=== PATIENT | male | born 1960 | race Caucasian/White ===

== ENCOUNTER 2017-03-22 07:50 | Emergency (ER) | payer MEDICARE ==
[2017-03-22] MEDS ORDERED: Sodium Chloride 0.9% 1000 ML 1,000 ML ONE (07:55)
[2017-03-22] MEDS ORDERED: Sodium Chloride 0.9% 1000 ML 1,000 ML IV STA (07:55)
--- NOTE | 2017-03-22 08:00 | ERPHSYRPT ---
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 Hx given by respiratory therapy who were with pt at the time. Pt suddenly passed out and "stopped breathing". Therapists began bag mask ventilations and brought pt to ER. Pt was unresponsive briefly but had a strong pulse. Pt then became responsive and said he had passed out. Pt c/o only of pain on sternum where a sternal rub had been performed. PMH of MR and anxiety. Pt had started a new med last night. Witnessed: other Prior Episodes: single episode today Timing/Duration: today Precipitating Factors: unknown Context: sitting Loss of Consciousness: prolonged (minutes) Charcter of event(s): became unresponsive Allergies/Adverse Reactions: No Known Drug Allergies Allergy (Verified 03/22/17 07:54) Home Medications: Cetirizine HCl 10 mg PO DAILY 09/29/13 [History] Fluoxetine HCl 10 mg [Prozac 10 mg] 40 mg PO DAILY 09/29/13 [History] Chlorhexidine Gluconate [HIBICLENS 4% Scrub] 1 bottle PO BID 08/10/14 [ History] Risperidone [Risperidone] 1 mg PO HS 03/22/17 [History] Hx Influenza Vaccination/Date Given: Yes - Past Medical History Pertinent Past Medical History: Yes Neurological History: TIA ENT History: Other Cardiac History: No Pertinent History Respiratory History: No Pertinent History Endocrine Medical History: No Pertinent History Musculoskeletal History: No Pertinent History GI Medical History: No Pertinent History History: No Pertinent History Psycho-Social History: Anxiety, Other Male Reproductive Disorders: No Pertinent History Other Medical History: Mental Retardation from . - Past Surgical History Past Surgical History: Yes Neuro Surgical History: No Pertinent History Cardiac: No Pertinent History Respiratory: No Pertinent History Gastrointestinal: Appendectomy Genitourinary: No Pertinent History Musculoskeletal: No Pertinent History Male Surgical History: No Pertinent History - Social History Smoking Status: Never smoker Exposure to second hand smoke: No Drug Use: none - Review of Systems Constitutional: No Fever, No Chills Eyes: No Symptoms Ears, Nose, & Throat: No Symptoms Respiratory: Dyspnea Cardiac: No Chest Pain, No Edema, No Syncope Abdominal/Gastrointestinal: No Abdominal Pain, No Nausea, No Vomiting, No Diarrhea Genitourinary Symptoms: No Dysuria Musculoskeletal: No Back Pain, No Neck Pain Skin: No Rash Neurological: No Dizziness, No Focal Weakness, No Sensory Changes Psychological: No Symptoms Endocrine: No Symptoms Hematologic/Lymphatic: No Symptoms Immunological/Allergic: No Symptoms All Other Systems: Reviewed and Negative Physical Exam - Nursing Vital Signs Nursing Vital Signs: Initial Vital Signs Temperature 98.8 F 03/22/17 07:57 Pulse Rate 70 03/22/17 07:57 Respiratory Rate 18 03/22/17 07:57 Blood Pressure 118/78 03/22/17 07:57 O2 Sat by Pulse Oximetry 98 03/22/17 07:57 Pain Scale Pain Intensity 0 - [place] Coma Scale Best Eye Response ([place]): (1) no response Best Verbal Response ([place]): (1) no verbal response Best Motor Response ([place]): (1) no motor response [place] Total: 3 - Physical Exam General Appearance: other (Upon entry into the ER the patient was comatose. He was undergoing bag and mask ventilation. He had strong radial pulses. Within 1 minute of being in the ER, the patient regained consciousness. 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 Skin Exam: normal color, warm, dry, No rash SpO2 Interpretation: O2 applied - Course EKG Interpreted by Me: RATE, Sinus Rhythm, NORMAL AXIS, NORMAL INTERVALS, NORMAL QRS, NORMAL ST-T - CT Exams Head CT Interpretation: Negative, No/Intracranial Hemorrhag (per Dr Ch) Ordered Tests: Active Orders 24 hr Category Date Time Status Accucheck STAT Care 03/22/17 07:55 Active User Experience Lead STAT Care 03/22/17 07:55 Active EKG-ER Only STAT Care 03/22/17 07:55 Active IV Insertion STAT Care 03/22/17 07:55 Active Pulse Oximetry (ED) STAT Care 03/22/17 07:55 Active HEAD WITHOUT CONTRAST [CT] Stat Exams 03/22/17 07:55 Completed CBC W DIFF Stat Lab 03/22/17 07:50 Completed CMP Stat Lab 03/22/17 07:50 Completed Manual Differential NC Stat Lab 03/22/17 07:50 Completed TROPONIN Stat Lab 03/22/17 07:50 Completed Medication Summary Discontinued Medications Generic Name Dose Route Start Last Admin Trade Name Antonella PRN Reason Stop Dose Admin Sodium Chloride Confirm 03/22/17 07:55 Sodium Chloride 0.9% 1000 Ml Administered 03/22/17 07:56 Dose 1,000 mls @ ud .ROUTE .STK-MED ONE Sodium Chloride 1,000 mls @ 999 mls/hr 03/22/17 07:55 03/22/17 08:04 Sodium Chloride 0.9% 1000 Ml IV 03/22/17 08:55 999 mls/hr .Q1H1M STA Administration Lab/Rad Data: Laboratory Result Diagrams 03/22/17 07:50 03/22/17 07:50 Laboratory Results 03/22/17 03/22/17 03/22/17 Range/Units 07:50 07:50 07:50 WBC 6.6 (4.0-10.5) K/mm3 RBC 4.60 (4.1-5.6) M/mm3 Hgb 14.2 (12.5-18.0) gm/dl Hct 42.5 (42-50) % MCV 92.4 (78-100) fl MCH 30.9 (26-32) pg MCHC 33.4 (32-36) g/dl RDW 12.4 (11.5-14.0) % Plt Count 174 (150-450) K/mm3 MPV 9.4 (6-9.5) fl Sodium 142 (136-145) mEq/L Potassium 3.7 (3.5-5.1) mEq/L Chloride 107 (98-107) mEq/L Carbon Dioxide 25.5 (21-32) mEq/L Anion Gap 13.1 (5-15) MEQ/L BUN 9 (9-20) mg/dL Creatinine 0.59 (0.55-1.30) mg/dl Estimated GFR > 60 ML/MIN Glucose 105 (70-110) MG/DL Calcium 8.6 (8.5-10.1) mg/dL Total Bilirubin 0.40 (0.2-1.0) mg/dL AST 24 (15-37) U/L ALT 26 (12-78) U/L Alkaline Phosphatase 90 (46-116) U/L Troponin I < 0.017 (0.000-0.056) ng/ml Serum Total Protein 6.7 (6.4-8.2) gm/dL Albumin 3.5 (3.4-5.0) g/dL - Progress Progress: improved Progress Note: 03/22/17 09:11 The patient had been nothing by mouth all night prior to the cardiac procedure. The patient received 1 L of normal saline by IV bolus and is now back to his baseline being quite talkative and happy. Counseled pt/family regarding: lab results, diagnosis, rad results - Departure Time of Disposition: 09:11 Departure Disposition: Home Clinical Impression: Syncopal episodes, Dehydration Condition: Stable Critical Care Time: No Referrals: KACI ARREDONDO MD [Primary Care Provider] - Additional Instructions: You had a fainting episode. You were also mildly dehydrated. You were given IV fluids in the ER. Follow-up as needed.
[2017-03-22 08:04] LABS: Granulocyte Absolute (ANC) 5.24 (1.4-6.9); Hematocrit 42.5 % (42-50); Hemoglobin 14.2 gm/dl (12.5-18.0); Mean Cell Volume 92.4 fl (78-100); Mean Corpuscular Hemoglobin 30.9 pg (26-32); Mean Corpuscular Hgb Concent. 33.4 g/dl (32-36); Mean Platelet Volume 9.4 fl (6-9.5); Platelet Count 174 K/mm3 (150-450); Red Cell Distribution Width 12.4 % (11.5-14.0); White Blood Count 6.6 K/mm3 (4.0-10.5)
--- NOTE | 2017-03-22 08:31 | XRAY ---
Indication: Unresponsive. Multiple contiguous axial images obtained through the head without contrast. Comparison: None Normal appearing brain parenchyma, ventricles, and bony calvarium. Visualized paranasal sinuses clear. There is partial opacification of both mastoid air cells presumed inflammatory. Impression: No acute intracranial abnormalities. Partial opacification of both mastoid air cells presumed inflammatory. CT DI 68.32
[2017-03-22 08:57] LABS: ALBUMIN 3.5 g/dL (3.4-5.0); ALKALINE PHOSPHATASE 90 U/L (46-116); ANION GAP 13.1 MEQ/L (5-15); BLOOD UREA NITROGEN 9 mg/dL (9-20); CHLORIDE 107 mEq/L (98-107); Calcium 8.6 mg/dL (8.5-10.1); Carbon Dioxide 25.5 mEq/L (21-32); Creatinine 1 0.59 mg/dl (0.55-1.30); EST GLOMERULAR FILTRATION RATE > 60 ML/MIN; Glucose 105 MG/DL (70-110); Potassium 3.7 mEq/L (3.5-5.1); SGOT/AST 24 U/L (15-37); SGPT/ALT 26 U/L (12-78); SODIUM 142 mEq/L (136-145); Total Protein 6.7 gm/dL (6.4-8.2)
[2017-03-22 08:58] VITALS: BP 130/72; PULSE 70; O2SAT 99
[2017-03-22 09:20] LABS: Lymphocytes 8 % (24-44); Monocyte 1 % (0.0-12.0); Neutrophils 91 % (36.-66.); Platelet Estimate NORMAL (NORMAL); Total Cells Counted 100
== END 2017-03-22 09:23 | disposition home or self-care (01) ==
LOC: ED 07:50
DX: R55 Syncope and collapse (principal); E86.0 Dehydration; R07.89 Other chest pain; Z79.899 Other long term (current) drug therapy
CPT/HCPCS: 36000; 36415; 70450; 80053; 82962; 84484; 85025; 93005; 93041; 96360; 99285

== ENCOUNTER 2020-10-23 11:27 | Emergency (ER) | payer MEDICARE ==
--- NOTE | 2020-10-23 11:30 | ERPHSYRPT ---
- History of Present Illness Time Seen by Provider: 10/23/20 11:29 Historian: patient, other (Caregiver) Exam Limitations: clinical condition Physician History: This is a 60-year-old white male who takes Prozac and risperidone medication and a daily baby aspirin and presents with sudden onset of central, substernal, nonradiating chest pain. He is unable to describe the type of pain. It appears he does not understand the question. Patient does have a history of mental retardation since . He lives in a shelter in [facility]. He was brought into the emergency department by primary caregiver. Patient has no documented coronary artery disease but has seen Dr. Barbosa, a aquarium specialist in the past. The reason is unknown at this time. Patient has a history of TIAs. Timing/Duration: today Activities at Onset: none Location: substernal, central Chest Pain Radiation: no radiation Severity of Pain-Max: mild Severity of Pain-Current: mild Modifying Factors: Improves With: nothing Associated Symptoms: denies symptoms Prior Chest Pain/Cardiac Workup: no prior chest pain, no prior cardiac workup, non-cardiac Nitro Today/Relief: no nitro taken today Aspirin Treatment Today: 81 mg x 1, provided at home Allergies/Adverse Reactions: No Known Drug Allergies Allergy (Verified 10/23/20 11:41) Home Medications: Cetirizine HCl 10 mg PO DAILY 09/29/13 [History] Aspirin 81 gm Chew [Baby Aspirin 81 mg Chew] 81 mg PO DAILY 10/23/20 [History] Buspirone HCl [Buspar] 15 mg PO DAILY 10/23/20 [History] Fluoxetine HCl 20 mg [Prozac 20 MG] 20 mg PO DAILY 10/23/20 [History] Polyethylene Glycol 3350 17 gm [Miralax Powder 17GM PACKET] 17 gm PO DAILY 10/23/20 [History] Hx Tetanus, Diphtheria Vaccination/Date Given: No Hx Influenza Vaccination/Date Given: Yes Hx Pneumococcal Vaccination/Date Given: Yes Travel Risk - International Travel Have you traveled outside of the country in past 3 weeks: No - Coronavirus Screening Are you exhibiting any of the following symptoms?: No Close contact with a COVID-19 positive Pt in past 14-21 Days: No - Review of Systems Constitutional: No Symptoms Eyes: No Symptoms Ears, Nose, & Throat: No Symptoms Respiratory: No Symptoms Cardiac: Chest Pain Abdominal/Gastrointestinal: No Symptoms Genitourinary Symptoms: No Symptoms Musculoskeletal: No Symptoms Skin: No Symptoms Neurological: No Symptoms Psychological: No Symptoms Endocrine: No Symptoms Hematologic/Lymphatic: No Symptoms Immunological/Allergic: No Symptoms All Other Systems: Reviewed and Negative - Past Medical History Pertinent Past Medical History: Yes Neurological History: TIA ENT History: Other Cardiac History: No Pertinent History Respiratory History: No Pertinent History Endocrine Medical History: No Pertinent History Musculoskeletal History: No Pertinent History GI Medical History: No Pertinent History History: No Pertinent History Psycho-Social History: Anxiety, Other Male Reproductive Disorders: No Pertinent History Other Medical History: Mental Retardation from . - Past Surgical History Past Surgical History: Yes Neuro Surgical History: No Pertinent History Cardiac: No Pertinent History Respiratory: No Pertinent History Gastrointestinal: Appendectomy Genitourinary: No Pertinent History Musculoskeletal: No Pertinent History Male Surgical History: No Pertinent History - Social History Smoking Status: Never smoker Exposure to second hand smoke: No Drug Use: none Patient Lives Alone: No - Nursing Vital Signs Nursing Vital Signs: Initial Vital Signs Temperature 97.2 F 10/23/20 11:27 Pulse Rate 95 H 10/23/20 11:27 Respiratory Rate 16 10/23/20 11:27 Blood Pressure 138/88 10/23/20 11:27 O2 Sat by Pulse Oximetry 97 10/23/20 11:27 Pain Scale Pain Intensity 0 - Physical Exam General Appearance: no apparent distress, alert, anxiety Eye Exam: PERRL/EOMI, eyes nml inspection Ears, Nose, Throat Exam: normal ENT inspection, moist mucous membranes Neck Exam: normal inspection, non-tender, supple, full range of motion Respiratory Exam: normal breath sounds, chest tenderness, lungs clear, airway intact, No respiratory distress Cardiovascular Exam: regular rate/rhythm, normal heart sounds, normal peripheral pulses Gastrointestinal/Abdomen Exam: soft, normal bowel sounds, No tenderness Rectal Exam: not done Back Exam: normal inspection, normal range of motion, vertebral tenderness, No CVA tenderness Extremity Exam: normal inspection, normal range of motion, pelvis stable Neurologic Exam: alert, oriented x 3, cooperative, state director II-XII nml as tested, normal mood/affect, nml cerebellar function, nml station & gait, sensation nml Skin Exam: normal color, warm, dry Lymphatic Exam: No adenopathy SpO2 Interpretation: normal O2 Delivery: Room Air - Course Nursing assessment & vital signs reviewed: Yes EKG Interpreted by Me: RATE, Sinus Rhythm, NORMAL AXIS, NORMAL INTERVALS, NORMAL QRS, NORMAL ST-T, Other (There are no acute ischemic changes on today's EKG. There are no significant changes or differences when compared to EKG dated 03/22/2017) Ordered Tests: Active Orders 24 hr Category Date Time Status Pharmacy Technician Per Diem STAT Care 10/23/20 11:43 Active EKG-ER Only STAT Care 10/23/20 11:42 Active IV Insertion STAT Care 10/23/20 11:42 Active Pulse Oximetry (ED) STAT Care 10/23/20 11:42 Active CHEST 1 VIEW (PORTABLE) Stat Exams 10/23/20 11:43 Ordered CBC W DIFF Stat Lab 10/23/20 11:50 Completed CMP Stat Lab 10/23/20 11:50 Completed D-DIMER QUANTITATIVE Stat Lab 10/23/20 11:50 Completed NT PRO BNP Stat Lab 10/23/20 11:50 Completed PROTIME WITH INR Stat Lab 10/23/20 11:50 Completed TROPONIN Q3H Lab 10/23/20 11:50 Completed TROPONIN Q3H Lab 10/23/20 14:45 Ordered TROPONIN Q3H Lab 10/23/20 17:45 Ordered TROPONIN Q3H Lab 10/23/20 20:45 Ordered TROPONIN Q3H Lab 10/23/20 23:45 Ordered Medication Summary Discontinued Medications Generic Name Dose Route Start Last Admin Trade Name Freq PRN Reason Stop Dose Admin Aspirin 243 mg 10/23/20 11:42 10/23/20 11:48 Baby Aspirin 81 Mg Chew PO 10/23/20 11:43 243 mg STAT ONE Administration Lab/Rad Data: Laboratory Result Diagrams 10/23/20 11:50 10/23/20 11:50 Laboratory Results 10/23/20 10/23/20 10/23/20 Range/Units 11:50 11:50 11:50 WBC (4.0-10.5) K/mm3 RBC (4.1-5.6) M/mm3 Hgb (12.5-18.0) gm/dl Hct (42-50) % MCV (78-100) fl MCH (26-32) pg MCHC (32-36) g/dl RDW (11.5-14.0) % Plt Count (150-450) K/mm3 MPV (7.5-11.0) fl Gran % (36.0-66.0) % Eos # (Auto) (0-0.5) Absolute Lymphs (auto) (1.0-4.6) Absolute Monos (auto) (0.0-1.3) Lymphocytes % (24.0-44.0) % Monocytes % (0.0-12.0) % Eosinophils % (0.00-5.0) % Basophils % (0.0-0.4) % Absolute Granulocytes (1.4-6.9) Basophils # (0-0.4) PT 12.2 (9.4-12.5) SECONDS INR 1.03 (0.8-3.0) D-Dimer 342 (215-500) ng/mL Sodium 139 (137-145) mmol/L Potassium 4.4 (3.5-5.1) mmol/L Chloride 100 (98-107) mmol/L Carbon Dioxide 26 (22-30) mmol/L Anion Gap 16.0 H (5-15) MEQ/L BUN 12 (9-20) mg/dL Creatinine 0.62 L (0.66-1.25) mg/dL Estimated GFR > 60.0 ML/MIN Glucose 96 (74-106) mg/dL Calcium 9.0 (8.4-10.2) mg/dL Total Bilirubin 0.50 (0.2-1.3) mg/dL AST 31 (17-59) U/L ALT 14 (0-50) U/L Alkaline Phosphatase 87 (38-126) U/L Troponin I < 0.012 (0.000-0.034) ng/mL NT-Pro-B Natriuret Pep 70.4 (0-900) pg/mL Serum Total Protein 7.8 (6.3-8.2) g/dL Albumin 4.3 (3.5-5.0) g/dL 10/23/20 Range/Units 11:50 WBC 5.5 (4.0-10.5) K/mm3 RBC 4.96 (4.1-5.6) M/mm3 Hgb 15.6 (12.5-18.0) gm/dl Hct 46.5 (42-50) % MCV 93.8 (78-100) fl MCH 31.5 (26-32) pg MCHC 33.5 (32-36) g/dl RDW 12.5 (11.5-14.0) % Plt Count 253 (150-450) K/mm3 MPV 9.6 (7.5-11.0) fl Gran % 65.8 (36.0-66.0) % Eos # (Auto) 0.08 (0-0.5) Absolute Lymphs (auto) 1.22 (1.0-4.6) Absolute Monos (auto) 0.55 (0.0-1.3) Lymphocytes % 22.1 L (24.0-44.0) % Monocytes % 10.0 (0.0-12.0) % Eosinophils % 1.4 (0.00-5.0) % Basophils % 0.7 (0.0-0.4) % Absolute Granulocytes 3.63 (1.4-6.9) Basophils # 0.04 (0-0.4) PT (9.4-12.5) SECONDS INR (0.8-3.0) D-Dimer (215-500) ng/mL Sodium (137-145) mmol/L Potassium (3.5-5.1) mmol/L Chloride (98-107) mmol/L Carbon Dioxide (22-30) mmol/L Anion Gap (5-15) MEQ/L BUN (9-20) mg/dL Creatinine (0.66-1.25) mg/dL Estimated GFR ML/MIN Glucose (74-106) mg/dL Calcium (8.4-10.2) mg/dL Total Bilirubin (0.2-1.3) mg/dL AST (17-59) U/L ALT (0-50) U/L Alkaline Phosphatase (38-126) U/L Troponin I (0.000-0.034) ng/mL NT-Pro-B Natriuret Pep (0-900) pg/mL Serum Total Protein (6.3-8.2) g/dL Albumin (3.5-5.0) g/dL - Progress Progress: improved, re-examined Air Movement: good Progress Note: 10/23/20 12:30 Chest x-ray shows no acute cardiopulmonary process. Patient reexamined. Chest pain has resolved. Blood Culture(s) Obtained: No Antibiotics given: No Counseled pt/family regarding: lab results, diagnosis, need for follow-up, rad results - Departure Departure Disposition: Home Clinical Impression: Chest pain Condition: Stable Critical Care Time: No Referrals: KACI ARREDONDO MD [Primary Care Provider] - Additional Instructions: Take all your medications as prescribed. Call your primary care doctor and aquarium specialist on Sunday10/25/2020 for further evaluation and management.
[2020-10-23] MEDS ORDERED: BABY ASPIRIN 81 MG CHEW PO ONE (11:42)
[2020-10-23 11:56] LABS: Absolute Neutrophil Ct (ANC) 3.63 (1.4-6.9); BASOPHIL % 0.7 % (0.0-0.4); Basophil (Absolute #) 0.04 (0-0.4); Eosinophil % 1.4 % (0.00-5.0); Eosinophil (Absolute #) 0.08 (0-0.5); Hematocrit 46.5 % (42-50); Hemoglobin 15.6 gm/dl (12.5-18.0); Lymphocyte (Absolute #) 1.22 (1.0-4.6); Lymphocytes % 22.1 % (24.0-44.0); Mean Cell Volume 93.8 fl (78-100); Mean Corpuscular Hemoglobin 31.5 pg (26-32); Mean Corpuscular Hgb Concent. 33.5 g/dl (32-36); Mean Platelet Volume 9.6 fl (7.5-11.0); Monocyte (Absolute #) 0.55 (0.0-1.3); Neutrophil % 65.8 % (36.0-66.0); Platelet Count 253 K/mm3 (150-450); Red Blood Count 4.96 M/mm3 (4.1-5.6); Red Cell Distribution Width 12.5 % (11.5-14.0); White Blood Count 5.5 K/mm3 (4.0-10.5)
[2020-10-23 12:07] LABS: INR 1.03 (0.8-3.0); PROTIME 12.2 SECONDS (9.4-12.5)
[2020-10-23 12:16] LABS: ALBUMIN 4.3 g/dL (3.5-5.0); ALKALINE PHOSPHATASE 87 U/L (38-126); BLOOD UREA NITROGEN 12 mg/dL (9-20); CHLORIDE 100 mmol/L (98-107); Carbon Dioxide 26 mmol/L (22-30); Creatinine 1 0.62 mg/dL (0.66-1.25); EST GLOMERULAR FILTRATION RATE > 60.0 ML/MIN; Glucose 96 mg/dL (74-106); NT PRO BNP 70.4 pg/mL (0-900); Potassium 4.4 mmol/L (3.5-5.1); SGOT/AST 31 U/L (17-59); SGPT/ALT 14 U/L (0-50); SODIUM 139 mmol/L (137-145); Total Protein 7.8 g/dL (6.3-8.2)
[2020-10-23 13:24] VITALS: BP 126/78; PULSE 70; O2SAT 98
--- NOTE | 2020-10-23 19:42 | XRAY ---
Indication: Chest pain. Comparison: None Portable apical lordotic chest is underinflated and clear. Heart not enlarged. Bony thorax intact. Impression: Nonacute underinflated chest.
== END 2020-10-23 13:24 | disposition home or self-care (01) ==
LOC: ED 11:27
DX: R07.9 Chest pain, unspecified (principal); Z79.899 Other long term (current) drug therapy
CPT/HCPCS: 36000; 36415; 71045; 80053; 83880; 84484; 85025; 85379; 85610; 93005; 93041; 94760; 99284; A9270-GY

== ENCOUNTER 2020-12-20 13:44 | Observation (INO) | payer MEDICARE ==
[2020-12-20] MEDS ORDERED: Sodium Chloride 0.9% 1000 ML 1,000 ML IV STA (13:57)
--- NOTE | 2020-12-20 14:11 | ERPHSYRPT ---
- History of Present Illness Time Seen by Provider: 12/20/20 13:46 Source: patient, EMS, other Exam Limitations: clinical condition Patient Subjective Stated Complaint: Pt caregiver states "He was walking down the [place] and all of a sudden said he needed help and he had an arched back and said his head really hurt. He was like that for about 2 minutes or so." Triage Nursing Assessment: Pt presented alert and oriented X 3, skin pwd. pt able to speak in clear full sentences. pt in no apparent respiratory distress. Physician History: 60 years old male with a history of moderate mental retardation, anxiety, depression is brought in the ER from assisted living after he was complaining of sudden onset headache and arched backward with stiffening and confusion for few minutes afterwards noticed by caregiver. The whole episode lasted for couple minutes and currently back to his baseline. Denies any headache, neck pain, numbness tingling or focal weakness. No chest pain palpitations or shortness of breath. Denies any weakness in the arms or legs. No visual disturbance. Patient history is limited secondary to his mental retardation. Timing/Duration: today, resolved prior to arrival, improved Severity: moderate Deficits: no difficulties Baseline/Normal Cognition: alert oriented x 3 Current Cognition: alert oriented x 3 Baseline Gait: walks w/o assistance Associated Symptoms: confusion Allergies/Adverse Reactions: lexicam Allergy (Intermediate, Uncoded 12/20/20 13:51) itchy Home Medications: Cetirizine HCl 10 mg PO DAILY 09/29/13 [History] Aspirin 81 gm Chew [Baby Aspirin 81 mg Chew] 81 mg PO DAILY 10/23/20 [History] Buspirone HCl [Buspar] 15 mg PO TID 10/23/20 [History] Fluoxetine HCl 20 mg [Prozac 20 MG] 40 mg PO DAILY 10/23/20 [History] Polyethylene Glycol 3350 17 gm [Miralax Powder 17GM PACKET] 17 gm PO DAILY 10/23/20 [History] Sodium Fluoride/Potassium Nit [Prevident 5000 Enamel Protect] 100 ml DT DAILY 12/20/20 [History] Hx Tetanus, Diphtheria Vaccination/Date Given: No Hx Influenza Vaccination/Date Given: Yes Hx Pneumococcal Vaccination/Date Given: Yes Immunizations Up to Date: Yes Travel Risk - International Travel Have you traveled outside of the country in past 3 weeks: No - Coronavirus Screening Are you exhibiting any of the following symptoms?: No Close contact with a COVID-19 positive Pt in past 14-21 Days: No - Vaccine Status Have you recieved a Covid-19 vaccination: Yes 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[employer] - Vaccination Dates Date of 2cond Vaccination (if applicable): 06/25/2020 - Review of Systems Constitutional: No Symptoms Eyes: No Symptoms Ears, Nose, & Throat: No Symptoms Respiratory: No Symptoms Cardiac: No Symptoms Abdominal/Gastrointestinal: No Symptoms Genitourinary Symptoms: No Symptoms Skin: No Symptoms Neurological: Headache Psychological: Anxiety, Depression Endocrine: No Symptoms Hematologic/Lymphatic: No Symptoms Immunological/Allergic: No Symptoms - Past Medical History Pertinent Past Medical History: Yes Neurological History: TIA ENT History: Other Cardiac History: No Pertinent History Respiratory History: No Pertinent History Endocrine Medical History: No Pertinent History Musculoskeletal History: No Pertinent History GI Medical History: No Pertinent History History: No Pertinent History Psycho-Social History: Anxiety, Other Male Reproductive Disorders: No Pertinent History Other Medical History: Mental Retardation from . - Past Surgical History Past Surgical History: Yes Neuro Surgical History: No Pertinent History Cardiac: No Pertinent History Respiratory: No Pertinent History Gastrointestinal: Appendectomy Genitourinary: No Pertinent History Musculoskeletal: No Pertinent History Male Surgical History: No Pertinent History - Social History Smoking Status: Never smoker Exposure to second hand smoke: No Drug Use: none Patient Lives Alone: No - Nursing Vital Signs Nursing Vital Signs: Initial Vital Signs Temperature 98.2 F 12/20/20 13:44 Pulse Rate 72 12/20/20 13:44 Respiratory Rate 22 12/20/20 13:44 Blood Pressure 135/92 12/20/20 13:44 O2 Sat by Pulse Oximetry 98 12/20/20 13:44 Pain Scale Pain Intensity 0 - [place] Coma Scale Best Eye Response ([place]): (4) open spontaneously Best Verbal Response ([place]): (5) oriented Best Motor Response ([place]): (6) obeys commands [place] Total: 15 - Physical Exam General Appearance: no apparent distress, alert Eye Exam: bilateral eye: normal inspection, PERRL, EOMI Ears, Nose, Throat Exam: normal ENT inspection, TMs normal, pharynx normal, moist mucous membranes Neck Exam: normal inspection, non-tender, supple, full range of motion, No meningismus Respiratory: normal breath sounds, lungs clear Cardiovascular: regular rate/rhythm, normal heart sounds Gastrointestinal: soft, normal bowel sounds, No tenderness Back Exam: normal inspection, normal range of motion Extremity Exam: normal inspection, normal range of motion, pelvis stable Mental Status: alert, oriented x 3, 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 Exam: normal hearing, normal speech, PERRL Coordination/Gait: normal finger to nose Motor/Sensory: no motor deficit, no sensory deficit, no pronator drift, negative Babinski's sign Skin Exam: normal color SpO2 Interpretation: normal SpO2: 98 O2 Delivery: Room Air Ordered Tests: Active Orders 24 hr Category Date Time Status NPO (ED) STAT Care 12/20/20 13:57 Active Tele-Health Consult ROUTINE Cons 12/20/20 16:05 Active CHEST 1 VIEW (PORTABLE) Stat Exams 12/20/20 13:58 Completed HEAD WITHOUT CONTRAST [CT] Stat Exams 12/20/20 13:58 Completed CBC W DIFF Stat Lab 12/20/20 14:30 Completed CMP Stat Lab 12/20/20 14:30 Completed Lactic Acid Stat Lab 12/20/20 15:00 Completed TROPONIN Q3H Lab 12/20/20 14:30 Completed TROPONIN Q3H Lab 12/20/20 17:00 Ordered TROPONIN Q3H Lab 12/20/20 20:00 Ordered TROPONIN Q3H Lab 12/20/20 23:00 Ordered UA W/RFX UR CULTURE Stat Lab 12/20/20 13:57 Completed Transfer Order Routine Transfer 12/20/20 Ordered Medication Summary Discontinued Medications Generic Name Dose Route Start Last Admin Trade Name Freq PRN Reason Stop Dose Admin Sodium Chloride 1,000 mls @ 999 mls/hr 12/20/20 13:57 12/20/20 15:52 Sodium Chloride 0.9% 1000 Ml IV 12/20/20 14:57 Infused .Q1H1M STA Infusion Sodium Chloride Confirm 12/20/20 14:24 Sodium Chloride 0.9% 1000 Ml Administered 12/20/20 14:25 Dose 1,000 mls @ ud .ROUTE .STK-MED ONE Levetiracetam 1,000 mg/ 110 mls @ 220 mls/hr 12/20/20 16:25 Dextrose IV 12/20/20 16:54 STAT ONE Lab/Rad Data: Laboratory Result Diagrams 12/20/20 14:30 12/20/20 14:30 Laboratory Results 12/20/20 12/20/20 12/20/20 Range/Units 15:00 14:30 14:30 WBC (4.0-10.5) K/mm3 RBC (4.1-5.6) M/mm3 Hgb (12.5-18.0) gm/dl Hct (42-50) % MCV (78-100) fl MCH (26-32) pg MCHC (32-36) g/dl RDW (11.5-14.0) % Plt Count (150-450) K/mm3 MPV (7.5-11.0) fl Gran % (36.0-66.0) % Eos # (Auto) (0-0.5) Absolute Lymphs (auto) (1.0-4.6) Absolute Monos (auto) (0.0-1.3) Lymphocytes % (24.0-44.0) % Monocytes % (0.0-12.0) % Eosinophils % (0.00-5.0) % Basophils % (0.0-0.4) % Absolute Granulocytes (1.4-6.9) Basophils # (0-0.4) Sodium 137 (137-145) mmol/L Potassium 4.3 (3.5-5.1) mmol/L Chloride 101 (98-107) mmol/L Carbon Dioxide 25 (22-30) mmol/L Anion Gap 15.4 H (5-15) MEQ/L BUN 13 (9-20) mg/dL Creatinine 0.62 L (0.66-1.25) mg/dL Estimated GFR > 60.0 ML/MIN Glucose 108 H (74-106) mg/dL Lactic Acid 1.1 (0.4-2.0) Calcium 9.1 (8.4-10.2) mg/dL Total Bilirubin 0.50 (0.2-1.3) mg/dL AST 24 (17-59) U/L ALT 13 (0-50) U/L Alkaline Phosphatase 95 (38-126) U/L Troponin I < 0.012 (0.000-0.034) ng/mL Serum Total Protein 7.4 (6.3-8.2) g/dL Albumin 4.3 (3.5-5.0) g/dL Urine Color (YELLOW) Urine Appearance (CLEAR) Urine pH (5-6) Ur Specific [place] (1.005-1.025) Urine Protein (Negative) Urine Ketones (NEGATIVE) Urine Blood (0-5) Cristino/ul Urine Nitrite (NEGATIVE) Urine Bilirubin (NEGATIVE) Urine Urobilinogen (0-1) mg/dL Ur Leukocyte Esterase (NEGATIVE) Urine WBC (Auto) (0-5) /HPF Urine RBC (Auto) (0-2) /HPF U Epithel Cells (Auto) (FEW) /HPF Urine Bacteria (Auto) (NEGATIVE) /HPF Urine Culture Reflexed (NO) Urine Glucose (NEGATIVE) mg/dL 12/20/20 12/20/20 Range/Units 14:30 13:57 WBC 5.8 (4.0-10.5) K/mm3 RBC 4.91 (4.1-5.6) M/mm3 Hgb 15.6 (12.5-18.0) gm/dl Hct 46.1 (42-50) % MCV 93.9 (78-100) fl MCH 31.8 (26-32) pg MCHC 33.8 (32-36) g/dl RDW 12.7 (11.5-14.0) % Plt Count 208 (150-450) K/mm3 MPV 9.3 (7.5-11.0) fl Gran % 74.1 H (36.0-66.0) % Eos # (Auto) 0.05 (0-0.5) Absolute Lymphs (auto) 0.92 L (1.0-4.6) Absolute Monos (auto) 0.51 (0.0-1.3) Lymphocytes % 15.9 L (24.0-44.0) % Monocytes % 8.8 (0.0-12.0) % Eosinophils % 0.9 (0.00-5.0) % Basophils % 0.3 (0.0-0.4) % Absolute Granulocytes 4.28 (1.4-6.9) Basophils # 0.02 (0-0.4) Sodium (137-145) mmol/L Potassium (3.5-5.1) mmol/L Chloride (98-107) mmol/L Carbon Dioxide (22-30) mmol/L Anion Gap (5-15) MEQ/L BUN (9-20) mg/dL Creatinine (0.66-1.25) mg/dL Estimated GFR ML/MIN Glucose (74-106) mg/dL Lactic Acid (0.4-2.0) Calcium (8.4-10.2) mg/dL Total Bilirubin (0.2-1.3) mg/dL AST (17-59) U/L ALT (0-50) U/L Alkaline Phosphatase (38-126) U/L Troponin I (0.000-0.034) ng/mL Serum Total Protein (6.3-8.2) g/dL Albumin (3.5-5.0) g/dL Urine Color STRAW (YELLOW) Urine Appearance CLEAR (CLEAR) Urine pH 6.0 (5-6) Ur Specific [place] 1.004 (1.005-1.025) Urine Protein NEGATIVE (Negative) Urine Ketones NEGATIVE (NEGATIVE) Urine Blood NEGATIVE (0-5) Cristino/ul Urine Nitrite NEGATIVE (NEGATIVE) Urine Bilirubin NEGATIVE (NEGATIVE) Urine Urobilinogen NEGATIVE (0-1) mg/dL Ur Leukocyte Esterase NEGATIVE (NEGATIVE) Urine WBC (Auto) NONE (0-5) /HPF Urine RBC (Auto) NONE (0-2) /HPF U Epithel Cells (Auto) NONE (FEW) /HPF Urine Bacteria (Auto) NONE (NEGATIVE) /HPF Urine Culture Reflexed NO (NO) Urine Glucose NEGATIVE (NEGATIVE) mg/dL - Progress Progress: improved Progress Note: 12/20/20 16:22 60 years old is evaluated in the ER for stiffening and afterward confusion for a few minutes sent was back to normal on presentation in the ER. Initially caregiver reported he did not have any episode before but later on the porch he had another episode 2 days ago and did not seek any medical attention. He has essentially nonfocal neuro exam. CT head is negative for any acute findings. Grossly unremarkable baseline work-up. I have obtained [facility] neurology consult, recommended further evaluation as patient is probably having new onset seizure and starting on antiepileptics. Discussed with Dr. Arredondo, reviewed history and [facility] neurology recommendations with MRI EEG and Keppra, patient is accepted for admission. Discussed with : Ethan Will see patient in: hospital (observation) Counseled pt/family regarding: lab results, diagnosis, rad results - Departure Departure Disposition: Observation Clinical Impression: New onset seizure Condition: Stable Critical Care Time: No Referrals: KACI ARREDONDO MD [Primary Care Provider] -
[2020-12-20] MEDS ORDERED: Sodium Chloride 0.9% 1000 ML 1,000 ML ONE (14:24)
--- NOTE | 2020-12-20 14:27 | XRAY ---
Indication: Seizure. Comparison: October 23, 2020. Portable apical lordotic chest remain slightly under inflated and clear. Heart not enlarged. Bony thorax intact. No new/acute findings.
--- NOTE | 2020-12-20 14:27 | XRAY ---
Indication: Seizure. Multiple contiguous images obtained through the head without contrast. Comparison: March 22, 2017. Normal appearing brain parenchyma, ventricles, and bony calvarium. Again partial opacification both mastoid air cells presumed inflammatory. Visualized paranasal sinuses are clear. Impression: Again partial opacification both mastoid air cells presumed inflammatory. Otherwise continued negative CT head without contrast exam.
[2020-12-20 14:52] LABS: Absolute Neutrophil Ct (ANC) 4.28 (1.4-6.9); BASOPHIL % 0.3 % (0.0-0.4); Basophil (Absolute #) 0.02 (0-0.4); Eosinophil % 0.9 % (0.00-5.0); Eosinophil (Absolute #) 0.05 (0-0.5); Hematocrit 46.1 % (42-50); Hemoglobin 15.6 gm/dl (12.5-18.0); Lymphocyte (Absolute #) 0.92 (1.0-4.6); Lymphocytes % 15.9 % (24.0-44.0); Mean Cell Volume 93.9 fl (78-100); Mean Corpuscular Hemoglobin 31.8 pg (26-32); Mean Corpuscular Hgb Concent. 33.8 g/dl (32-36); Mean Platelet Volume 9.3 fl (7.5-11.0); Monocyte (Absolute #) 0.51 (0.0-1.3); Monocytes % 8.8 % (0.0-12.0); Neutrophil % 74.1 % (36.0-66.0); Platelet Count 208 K/mm3 (150-450); Red Blood Count 4.91 M/mm3 (4.1-5.6); Red Cell Distribution Width 12.7 % (11.5-14.0); White Blood Count 5.8 K/mm3 (4.0-10.5)
[2020-12-20 15:07] LABS: ALBUMIN 4.3 g/dL (3.5-5.0); ALKALINE PHOSPHATASE 95 U/L (38-126); ANION GAP 15.4 MEQ/L (5-15); BLOOD UREA NITROGEN 13 mg/dL (9-20); CHLORIDE 101 mmol/L (98-107); Calcium 9.1 mg/dL (8.4-10.2); Carbon Dioxide 25 mmol/L (22-30); Creatinine 1 0.62 mg/dL (0.66-1.25); EST GLOMERULAR FILTRATION RATE > 60.0 ML/MIN; Glucose 108 mg/dL (74-106); Potassium 4.3 mmol/L (3.5-5.1); SGOT/AST 24 U/L (17-59); SGPT/ALT 13 U/L (0-50); SODIUM 137 mmol/L (137-145); Total Protein 7.4 g/dL (6.3-8.2)
[2020-12-20] MEDS ORDERED: Keppra 500 MG/5 ML*** 1,000 MG in D5w 100ML Mini Bag 100 ML 100 ML IV ONE (16:25)
[2020-12-20 17:09] LABS: Appearance CLEAR (CLEAR); Bilirubin NEGATIVE (NEGATIVE); Blood NEGATIVE Ery/ul (0-5); Glucose NEGATIVE (NEGATIVE); Ketones NEGATIVE (NEGATIVE); Leukocyte Esterase NEGATIVE (NEGATIVE); Nitrite NEGATIVE (NEGATIVE); Protein,Urine Dip NEGATIVE (Negative); Specific Gravity 1.004 (1.005-1.025); Urobilinogen NEGATIVE mg/dL (0-1)
[2020-12-20] MEDS ORDERED: TYLENOL 325 MG PO PRN (18:55)
[2020-12-20] MEDS ORDERED: DUONEB 0.5-3 MG/3 ml Neb IH PRN (18:55)
[2020-12-20] MEDS: Sodium Chloride 0.9% 1000 ML 1,000 ML IV SCH (21:15)
[2020-12-20] MEDS: BUSPAR 5 MG PO SCH (21:16)
[2020-12-20] MEDS: KEPPRA 500 MG PO SCH (21:16)
[2020-12-21] MEDS: Sodium Chloride 0.9% 1000 ML 1,000 ML IV SCH (05:36)
[2020-12-21 05:47] LABS: Absolute Neutrophil Ct (ANC) 4.98 (1.4-6.9); BASOPHIL % 0.3 % (0.0-0.4); Basophil (Absolute #) 0.02 (0-0.4); Eosinophil (Absolute #) 0.08 (0-0.5); Hematocrit 44.1 % (42-50); Hemoglobin 14.7 gm/dl (12.5-18.0); Lymphocyte (Absolute #) 2.14 (1.0-4.6); Lymphocytes % 26.9 % (24.0-44.0); Mean Cell Volume 94.4 fl (78-100); Mean Corpuscular Hemoglobin 31.5 pg (26-32); Mean Corpuscular Hgb Concent. 33.3 g/dl (32-36); Mean Platelet Volume 9.6 fl (7.5-11.0); Monocyte (Absolute #) 0.73 (0.0-1.3); Monocytes % 9.2 % (0.0-12.0); Neutrophil % 62.6 % (36.0-66.0); Platelet Count 234 K/mm3 (150-450); Red Blood Count 4.67 M/mm3 (4.1-5.6); Red Cell Distribution Width 12.7 % (11.5-14.0)
[2020-12-21 06:36] LABS: ANION GAP 13.5 MEQ/L (5-15); BLOOD UREA NITROGEN 10 mg/dL (9-20); CHLORIDE 101 mmol/L (98-107); Carbon Dioxide 28 mmol/L (22-30); Creatinine 1 0.67 mg/dL (0.66-1.25); EST GLOMERULAR FILTRATION RATE > 60.0 ML/MIN; Glucose 100 mg/dL (74-106); Potassium 3.9 mmol/L (3.5-5.1); SODIUM 139 mmol/L (137-145)
[2020-12-21] MEDS ORDERED: Ativan 2 MG/1 ML VIAL IV PRN (08:52)
--- NOTE | 2020-12-21 09:02 | PCM.SSS ---
History of Present Illness - Chief Complaint Chief Complaint: New onset seizures History of Present Illness: is a 60 year old male pt of Dr. Naranjo with mental retardation who was admitted through ER with 2 episodes of seizure-like activity. In the past 2 days, per ER note, he had 2 episodes of stiffening, unresponsiveness, and VANG. CT head was nonacute. CXR nonacute. Labs unremarkable. Troponins neg x 4. Teleneuro consult agreed seizure is the most likely diagnosis. He was admitted for keppra tx and observation; has had no issues here with respect to seizures (has been restless and did not sleep last night, however). Pt would really like to be discharged to home. Says repeatedly that he is fine this morning. - Review of Systems All Other Systems: Unable due to condition (mental retardation) Medications & Allergies Home Medications: Home Medication List Cetirizine HCl 10 mg PO DAILY 09/29/13 [History Confirmed 12/20/20] Aspirin 81 gm Chew [Baby Aspirin 81 mg Chew] 81 mg PO DAILY 10/23/20 [History Confirmed 12/20/20] Buspirone HCl [Buspar] 15 mg PO TID 10/23/20 [History Confirmed 12/20/20] Fluoxetine HCl 20 mg [Prozac 20 MG] 40 mg PO DAILY 10/23/20 [History Confirmed 12/20/20] Polyethylene Glycol 3350 17 gm [Miralax Powder 17GM PACKET] 17 gm PO DAILY 10/23/20 [History Confirmed 12/20/20] Psyllium Husk [Fiber] 0.52 gm PO BID 12/20/20 [History Confirmed 12/20/20] Levetiracetam [Keppra 500 mg ] 500 mg PO BID #60 tablet 12/21/20 [Rx] Allergies/Adverse Reactions: Allergies Allergy/AdvReac Type Severity Reaction Status Date / Time lexicam Allergy Intermediate itchy Uncoded 12/20/20 18:56 - Past Medical History Past Medical History: Yes Neurological History: TIA ENT History: Other Cardiac History: No Pertinent History Respiratory History: No Pertinent History Endocrine Medical History: No Pertinent History Musculoskelatal History: No Pertinent History GI Medical History: No Pertinent History History: No Pertinent History Pyscho-Social History: Anxiety, Other Male Reproductive Disorders: No Pertinent History Comment: Mental Retardation from , mood disorder - Past Surgical History Past Surgical History: Yes Neuro Surgical History: No Pertinent History Cardiac History: No Pertinent History Respiratory Surgery: No Pertinent History GI Surgical History: Appendectomy Genitourinary Surgical Hx: No Pertinent History Musculskeletal Surgical Hx: No Pertinent History Male Surgical History: No Pertinent History - Social History Smoking Status: Never smoker Exposure to second hand smoke: No Alcohol: None Drug Use: none - Physical Exam Vital Signs: Vital Signs - 24 hr Temp Pulse Resp BP Pulse Ox 12/21/20 07:41 98.5 F 75 16 147/80 94 L 12/21/20 04:00 97.8 F 91 H 16 132/78 95 12/20/20 23:53 98.6 F 69 16 136/71 95 12/20/20 20:36 65 18 94 L 12/20/20 19:25 98.7 F 65 20 130/83 94 L 12/20/20 18:00 98.2 F 82 20 153/92 98 12/20/20 17:18 98 12/20/20 16:13 98.2 F 73 20 141/97 98 12/20/20 15:33 98.2 F 66 18 133/93 98 12/20/20 13:44 98.2 F 72 22 135/92 98 General Appearance: no apparent distress, alert Neurologic Exam: cooperative, normal mood/affect, other (sitting up in chair, fully clothed. turns the light on for me.), No facial droop, No slurred speech Eye Exam: eyes nml inspection, other (unable to perform CN exam) Neck Exam: normal inspection Respiratory Exam: normal breath sounds, lungs clear, No crackles/rales, No rhonchi, No wheezing Cardiovascular Exam: regular rate/rhythm, normal heart sounds, No murmur Skin Exam: normal color, warm, dry, No rash Results - Labs Lab/Micro Results: Lab Results-Last 24 Hours 12/20/20 12/20/20 12/20/20 Range/Units 13:57 14:30 14:30 WBC 5.8 (4.0-10.5) K/mm3 RBC 4.91 (4.1-5.6) M/mm3 Hgb 15.6 (12.5-18.0) gm/dl Hct 46.1 (42-50) % MCV 93.9 (78-100) fl MCH 31.8 (26-32) pg MCHC 33.8 (32-36) g/dl RDW 12.7 (11.5-14.0) % Plt Count 208 (150-450) K/mm3 MPV 9.3 (7.5-11.0) fl Gran % 74.1 H (36.0-66.0) % Eos # (Auto) 0.05 (0-0.5) Absolute Lymphs (auto) 0.92 L (1.0-4.6) Absolute Monos (auto) 0.51 (0.0-1.3) Lymphocytes % 15.9 L (24.0-44.0) % Monocytes % 8.8 (0.0-12.0) % Eosinophils % 0.9 (0.00-5.0) % Basophils % 0.3 (0.0-0.4) % Absolute Granulocytes 4.28 (1.4-6.9) Basophils # 0.02 (0-0.4) Sodium 137 (137-145) mmol/L Potassium 4.3 (3.5-5.1) mmol/L Chloride 101 (98-107) mmol/L Carbon Dioxide 25 (22-30) mmol/L Anion Gap 15.4 H (5-15) MEQ/L BUN 13 (9-20) mg/dL Creatinine 0.62 L (0.66-1.25) mg/dL Estimated GFR > 60.0 ML/MIN Glucose 108 H (74-106) mg/dL Lactic Acid (0.4-2.0) Calcium 9.1 (8.4-10.2) mg/dL Total Bilirubin 0.50 (0.2-1.3) mg/dL AST 24 (17-59) U/L ALT 13 (0-50) U/L Alkaline Phosphatase 95 (38-126) U/L Troponin I (0.000-0.034) ng/mL Serum Total Protein 7.4 (6.3-8.2) g/dL Albumin 4.3 (3.5-5.0) g/dL Urine Color STRAW (YELLOW) Urine Appearance CLEAR (CLEAR) Urine pH 6.0 (5-6) Ur Specific [place] 1.004 (1.005-1.025) Urine Protein NEGATIVE (Negative) Urine Ketones NEGATIVE (NEGATIVE) Urine Blood NEGATIVE (0-5) Cristino/ul Urine Nitrite NEGATIVE (NEGATIVE) Urine Bilirubin NEGATIVE (NEGATIVE) Urine Urobilinogen NEGATIVE (0-1) mg/dL Ur Leukocyte Esterase NEGATIVE (NEGATIVE) Urine WBC (Auto) NONE (0-5) /HPF Urine RBC (Auto) NONE (0-2) /HPF U Epithel Cells (Auto) NONE (FEW) /HPF Urine Bacteria (Auto) NONE (NEGATIVE) /HPF Urine Culture Reflexed NO (NO) Urine Glucose NEGATIVE (NEGATIVE) mg/dL SARS-CoV-2 (PCR) (NEGATIVE) 12/20/20 12/20/20 12/20/20 Range/Units 14:30 15:00 16:41 WBC (4.0-10.5) K/mm3 RBC (4.1-5.6) M/mm3 Hgb (12.5-18.0) gm/dl Hct (42-50) % MCV (78-100) fl MCH (26-32) pg MCHC (32-36) g/dl RDW (11.5-14.0) % Plt Count (150-450) K/mm3 MPV (7.5-11.0) fl Gran % (36.0-66.0) % Eos # (Auto) (0-0.5) Absolute Lymphs (auto) (1.0-4.6) Absolute Monos (auto) (0.0-1.3) Lymphocytes % (24.0-44.0) % Monocytes % (0.0-12.0) % Eosinophils % (0.00-5.0) % Basophils % (0.0-0.4) % Absolute Granulocytes (1.4-6.9) Basophils # (0-0.4) Sodium (137-145) mmol/L Potassium (3.5-5.1) mmol/L Chloride (98-107) mmol/L Carbon Dioxide (22-30) mmol/L Anion Gap (5-15) MEQ/L BUN (9-20) mg/dL Creatinine (0.66-1.25) mg/dL Estimated GFR ML/MIN Glucose (74-106) mg/dL Lactic Acid 1.1 (0.4-2.0) Calcium (8.4-10.2) mg/dL Total Bilirubin (0.2-1.3) mg/dL AST (17-59) U/L ALT (0-50) U/L Alkaline Phosphatase (38-126) U/L Troponin I < 0.012 (0.000-0.034) ng/mL Serum Total Protein (6.3-8.2) g/dL Albumin (3.5-5.0) g/dL Urine Color (YELLOW) Urine Appearance (CLEAR) Urine pH (5-6) Ur Specific [place] (1.005-1.025) Urine Protein (Negative) Urine Ketones (NEGATIVE) Urine Blood (0-5) Cristino/ul Urine Nitrite (NEGATIVE) Urine Bilirubin (NEGATIVE) Urine Urobilinogen (0-1) mg/dL Ur Leukocyte Esterase (NEGATIVE) Urine WBC (Auto) (0-5) /HPF Urine RBC (Auto) (0-2) /HPF U Epithel Cells (Auto) (FEW) /HPF Urine Bacteria (Auto) (NEGATIVE) /HPF Urine Culture Reflexed (NO) Urine Glucose (NEGATIVE) mg/dL SARS-CoV-2 (PCR) NEGATIVE (NEGATIVE) 12/20/20 12/20/20 12/20/20 Range/Units 17:16 20:00 23:40 WBC (4.0-10.5) K/mm3 RBC (4.1-5.6) M/mm3 Hgb (12.5-18.0) gm/dl Hct (42-50) % MCV (78-100) fl MCH (26-32) pg MCHC (32-36) g/dl RDW (11.5-14.0) % Plt Count (150-450) K/mm3 MPV (7.5-11.0) fl Gran % (36.0-66.0) % Eos # (Auto) (0-0.5) Absolute Lymphs (auto) (1.0-4.6) Absolute Monos (auto) (0.0-1.3) Lymphocytes % (24.0-44.0) % Monocytes % (0.0-12.0) % Eosinophils % (0.00-5.0) % Basophils % (0.0-0.4) % Absolute Granulocytes (1.4-6.9) Basophils # (0-0.4) Sodium (137-145) mmol/L Potassium (3.5-5.1) mmol/L Chloride (98-107) mmol/L Carbon Dioxide (22-30) mmol/L Anion Gap (5-15) MEQ/L BUN (9-20) mg/dL Creatinine (0.66-1.25) mg/dL Estimated GFR ML/MIN Glucose (74-106) mg/dL Lactic Acid (0.4-2.0) Calcium (8.4-10.2) mg/dL Total Bilirubin (0.2-1.3) mg/dL AST (17-59) U/L ALT (0-50) U/L Alkaline Phosphatase (38-126) U/L Troponin I < 0.012 < 0.012 < 0.012 (0.000-0.034) ng/mL Serum Total Protein (6.3-8.2) g/dL Albumin (3.5-5.0) g/dL Urine Color (YELLOW) Urine Appearance (CLEAR) Urine pH (5-6) Ur Specific [place] (1.005-1.025) Urine Protein (Negative) Urine Ketones (NEGATIVE) Urine Blood (0-5) Cristino/ul Urine Nitrite (NEGATIVE) Urine Bilirubin (NEGATIVE) Urine Urobilinogen (0-1) mg/dL Ur Leukocyte Esterase (NEGATIVE) Urine WBC (Auto) (0-5) /HPF Urine RBC (Auto) (0-2) /HPF U Epithel Cells (Auto) (FEW) /HPF Urine Bacteria (Auto) (NEGATIVE) /HPF Urine Culture Reflexed (NO) Urine Glucose (NEGATIVE) mg/dL SARS-CoV-2 (PCR) (NEGATIVE) 12/21/20 12/21/20 Range/Units 05:00 05:00 WBC 8.0 (4.0-10.5) K/mm3 RBC 4.67 (4.1-5.6) M/mm3 Hgb 14.7 (12.5-18.0) gm/dl Hct 44.1 (42-50) % MCV 94.4 (78-100) fl MCH 31.5 (26-32) pg MCHC 33.3 (32-36) g/dl RDW 12.7 (11.5-14.0) % Plt Count 234 (150-450) K/mm3 MPV 9.6 (7.5-11.0) fl Gran % 62.6 (36.0-66.0) % Eos # (Auto) 0.08 (0-0.5) Absolute Lymphs (auto) 2.14 (1.0-4.6) Absolute Monos (auto) 0.73 (0.0-1.3) Lymphocytes % 26.9 (24.0-44.0) % Monocytes % 9.2 (0.0-12.0) % Eosinophils % 1.0 (0.00-5.0) % Basophils % 0.3 (0.0-0.4) % Absolute Granulocytes 4.98 (1.4-6.9) Basophils # 0.02 (0-0.4) Sodium 139 (137-145) mmol/L Potassium 3.9 (3.5-5.1) mmol/L Chloride 101 (98-107) mmol/L Carbon Dioxide 28 (22-30) mmol/L Anion Gap 13.5 (5-15) MEQ/L BUN 10 (9-20) mg/dL Creatinine 0.67 (0.66-1.25) mg/dL Estimated GFR > 60.0 ML/MIN Glucose 100 (74-106) mg/dL Lactic Acid (0.4-2.0) Calcium 9.0 (8.4-10.2) mg/dL Total Bilirubin (0.2-1.3) mg/dL AST (17-59) U/L ALT (0-50) U/L Alkaline Phosphatase (38-126) U/L Troponin I (0.000-0.034) ng/mL Serum Total Protein (6.3-8.2) g/dL Albumin (3.5-5.0) g/dL Urine Color (YELLOW) Urine Appearance (CLEAR) Urine pH (5-6) Ur Specific [place] (1.005-1.025) Urine Protein (Negative) Urine Ketones (NEGATIVE) Urine Blood (0-5) Cristino/ul Urine Nitrite (NEGATIVE) Urine Bilirubin (NEGATIVE) Urine Urobilinogen (0-1) mg/dL Ur Leukocyte Esterase (NEGATIVE) Urine WBC (Auto) (0-5) /HPF Urine RBC (Auto) (0-2) /HPF U Epithel Cells (Auto) (FEW) /HPF Urine Bacteria (Auto) (NEGATIVE) /HPF Urine Culture Reflexed (NO) Urine Glucose (NEGATIVE) mg/dL SARS-CoV-2 (PCR) (NEGATIVE) - Radiology Impressions Radiology Exams & Impressions: Radiology Procedures Category Date Time Status CHEST 1 VIEW (PORTABLE) Stat Exams 12/20/20 13:58 Completed HEAD WITHOUT CONTRAST [CT] Stat Exams 12/20/20 13:58 Completed MRI BRAIN W/O CONTRAST [MRI] Stat Exams 12/21/20 08:17 Ordered - Other Procedures and Tests Respiratory Therapy 12/21/20 08:52 EEG 41-60 Minutes (Normal) ONCE Assessment/Plan (1) New onset seizure Current Visit: Yes Status: Acute Assessment & Plan: Will do EEG and MRI today, with sedation. Once awake, send pt home on po keppra. F/u with Dr. Arredondo in 1 week. Code(s): R56.9 - UNSPECIFIED CONVULSIONS (2) Mental retardation Current Visit: No Status: Chronic Code(s): F79 - UNSPECIFIED INTELLECTUAL DISABILITIES Hospital Summary - Hospital Course Hospital Course: Pt is 60 yo male pt of Dr. Arredondo with mental retardation who was admitted through ER with seizures. Neuro consult agrees this is the most likely dx. CT head neg. Will get MRI brain and EEG today; sedation will be required. Afterward, once pt is fully awake, will plan to discharge to home on po keppra. F/u with Dr. Arredondo in office. - Vitals & Intake/Output Vital Signs: Vital Signs Temperature 98.5 F 12/21/20 07:41 Pulse Rate 75 12/21/20 07:41 Respiratory Rate 16 12/21/20 07:41 Blood Pressure 147/80 12/21/20 07:41 O2 Sat by Pulse Oximetry 94 L 12/21/20 07:41 Intake & Output: Intake & Output 12/18/20 12/19/20 12/20/20 12/21/20 11:59 11:59 11:59 11:59 Intake Total 1500 Output Total 1 Balance 1499 Weight 95.3 kg - Lab Result Diagrams: 12/21/20 05:00 12/21/20 05:00 Lab Results-Last 24 Hrs: Lab Results-Last 24 Hours 12/20/20 12/20/20 12/20/20 Range/Units 13:57 14:30 14:30 WBC 5.8 (4.0-10.5) K/mm3 RBC 4.91 (4.1-5.6) M/mm3 Hgb 15.6 (12.5-18.0) gm/dl Hct 46.1 (42-50) % MCV 93.9 (78-100) fl MCH 31.8 (26-32) pg MCHC 33.8 (32-36) g/dl RDW 12.7 (11.5-14.0) % Plt Count 208 (150-450) K/mm3 MPV 9.3 (7.5-11.0) fl Gran % 74.1 H (36.0-66.0) % Eos # (Auto) 0.05 (0-0.5) Absolute Lymphs (auto) 0.92 L (1.0-4.6) Absolute Monos (auto) 0.51 (0.0-1.3) Lymphocytes % 15.9 L (24.0-44.0) % Monocytes % 8.8 (0.0-12.0) % Eosinophils % 0.9 (0.00-5.0) % Basophils % 0.3 (0.0-0.4) % Absolute Granulocytes 4.28 (1.4-6.9) Basophils # 0.02 (0-0.4) Sodium 137 (137-145) mmol/L Potassium 4.3 (3.5-5.1) mmol/L Chloride 101 (98-107) mmol/L Carbon Dioxide 25 (22-30) mmol/L Anion Gap 15.4 H (5-15) MEQ/L BUN 13 (9-20) mg/dL Creatinine 0.62 L (0.66-1.25) mg/dL Estimated GFR > 60.0 ML/MIN Glucose 108 H (74-106) mg/dL Lactic Acid (0.4-2.0) Calcium 9.1 (8.4-10.2) mg/dL Total Bilirubin 0.50 (0.2-1.3) mg/dL AST 24 (17-59) U/L ALT 13 (0-50) U/L Alkaline Phosphatase 95 (38-126) U/L Troponin I (0.000-0.034) ng/mL Serum Total Protein 7.4 (6.3-8.2) g/dL Albumin 4.3 (3.5-5.0) g/dL Urine Color STRAW (YELLOW) Urine Appearance CLEAR (CLEAR) Urine pH 6.0 (5-6) Ur Specific [place] 1.004 (1.005-1.025) Urine Protein NEGATIVE (Negative) Urine Ketones NEGATIVE (NEGATIVE) Urine Blood NEGATIVE (0-5) Cristino/ul Urine Nitrite NEGATIVE (NEGATIVE) Urine Bilirubin NEGATIVE (NEGATIVE) Urine Urobilinogen NEGATIVE (0-1) mg/dL Ur Leukocyte Esterase NEGATIVE (NEGATIVE) Urine WBC (Auto) NONE (0-5) /HPF Urine RBC (Auto) NONE (0-2) /HPF U Epithel Cells (Auto) NONE (FEW) /HPF Urine Bacteria (Auto) NONE (NEGATIVE) /HPF Urine Culture Reflexed NO (NO) Urine Glucose NEGATIVE (NEGATIVE) mg/dL SARS-CoV-2 (PCR) (NEGATIVE) 12/20/20 12/20/20 12/20/20 Range/Units 14:30 15:00 16:41 WBC (4.0-10.5) K/mm3 RBC (4.1-5.6) M/mm3 Hgb (12.5-18.0) gm/dl Hct (42-50) % MCV (78-100) fl MCH (26-32) pg MCHC (32-36) g/dl RDW (11.5-14.0) % Plt Count (150-450) K/mm3 MPV (7.5-11.0) fl Gran % (36.0-66.0) % Eos # (Auto) (0-0.5) Absolute Lymphs (auto) (1.0-4.6) Absolute Monos (auto) (0.0-1.3) Lymphocytes % (24.0-44.0) % Monocytes % (0.0-12.0) % Eosinophils % (0.00-5.0) % Basophils % (0.0-0.4) % Absolute Granulocytes (1.4-6.9) Basophils # (0-0.4) Sodium (137-145) mmol/L Potassium (3.5-5.1) mmol/L Chloride (98-107) mmol/L Carbon Dioxide (22-30) mmol/L Anion Gap (5-15) MEQ/L BUN (9-20) mg/dL Creatinine (0.66-1.25) mg/dL Estimated GFR ML/MIN Glucose (74-106) mg/dL Lactic Acid 1.1 (0.4-2.0) Calcium (8.4-10.2) mg/dL Total Bilirubin (0.2-1.3) mg/dL AST (17-59) U/L ALT (0-50) U/L Alkaline Phosphatase (38-126) U/L Troponin I < 0.012 (0.000-0.034) ng/mL Serum Total Protein (6.3-8.2) g/dL Albumin (3.5-5.0) g/dL Urine Color (YELLOW) Urine Appearance (CLEAR) Urine pH (5-6) Ur Specific [place] (1.005-1.025) Urine Protein (Negative) Urine Ketones (NEGATIVE) Urine Blood (0-5) Cristino/ul Urine Nitrite (NEGATIVE) Urine Bilirubin (NEGATIVE) Urine Urobilinogen (0-1) mg/dL Ur Leukocyte Esterase (NEGATIVE) Urine WBC (Auto) (0-5) /HPF Urine RBC (Auto) (0-2) /HPF U Epithel Cells (Auto) (FEW) /HPF Urine Bacteria (Auto) (NEGATIVE) /HPF Urine Culture Reflexed (NO) Urine Glucose (NEGATIVE) mg/dL SARS-CoV-2 (PCR) NEGATIVE (NEGATIVE) 12/20/20 12/20/20 12/20/20 Range/Units 17:16 20:00 23:40 WBC (4.0-10.5) K/mm3 RBC (4.1-5.6) M/mm3 Hgb (12.5-18.0) gm/dl Hct (42-50) % MCV (78-100) fl MCH (26-32) pg MCHC (32-36) g/dl RDW (11.5-14.0) % Plt Count (150-450) K/mm3 MPV (7.5-11.0) fl Gran % (36.0-66.0) % Eos # (Auto) (0-0.5) Absolute Lymphs (auto) (1.0-4.6) Absolute Monos (auto) (0.0-1.3) Lymphocytes % (24.0-44.0) % Monocytes % (0.0-12.0) % Eosinophils % (0.00-5.0) % Basophils % (0.0-0.4) % Absolute Granulocytes (1.4-6.9) Basophils # (0-0.4) Sodium (137-145) mmol/L Potassium (3.5-5.1) mmol/L Chloride (98-107) mmol/L Carbon Dioxide (22-30) mmol/L Anion Gap (5-15) MEQ/L BUN (9-20) mg/dL Creatinine (0.66-1.25) mg/dL Estimated GFR ML/MIN Glucose (74-106) mg/dL Lactic Acid (0.4-2.0) Calcium (8.4-10.2) mg/dL Total Bilirubin (0.2-1.3) mg/dL AST (17-59) U/L ALT (0-50) U/L Alkaline Phosphatase (38-126) U/L Troponin I < 0.012 < 0.012 < 0.012 (0.000-0.034) ng/mL Serum Total Protein (6.3-8.2) g/dL Albumin (3.5-5.0) g/dL Urine Color (YELLOW) Urine Appearance (CLEAR) Urine pH (5-6) Ur Specific [place] (1.005-1.025) Urine Protein (Negative) Urine Ketones (NEGATIVE) Urine Blood (0-5) Cristino/ul Urine Nitrite (NEGATIVE) Urine Bilirubin (NEGATIVE) Urine Urobilinogen (0-1) mg/dL Ur Leukocyte Esterase (NEGATIVE) Urine WBC (Auto) (0-5) /HPF Urine RBC (Auto) (0-2) /HPF U Epithel Cells (Auto) (FEW) /HPF Urine Bacteria (Auto) (NEGATIVE) /HPF Urine Culture Reflexed (NO) Urine Glucose (NEGATIVE) mg/dL SARS-CoV-2 (PCR) (NEGATIVE) 12/21/20 12/21/20 Range/Units 05:00 05:00 WBC 8.0 (4.0-10.5) K/mm3 RBC 4.67 (4.1-5.6) M/mm3 Hgb 14.7 (12.5-18.0) gm/dl Hct 44.1 (42-50) % MCV 94.4 (78-100) fl MCH 31.5 (26-32) pg MCHC 33.3 (32-36) g/dl RDW 12.7 (11.5-14.0) % Plt Count 234 (150-450) K/mm3 MPV 9.6 (7.5-11.0) fl Gran % 62.6 (36.0-66.0) % Eos # (Auto) 0.08 (0-0.5) Absolute Lymphs (auto) 2.14 (1.0-4.6) Absolute Monos (auto) 0.73 (0.0-1.3) Lymphocytes % 26.9 (24.0-44.0) % Monocytes % 9.2 (0.0-12.0) % Eosinophils % 1.0 (0.00-5.0) % Basophils % 0.3 (0.0-0.4) % Absolute Granulocytes 4.98 (1.4-6.9) Basophils # 0.02 (0-0.4) Sodium 139 (137-145) mmol/L Potassium 3.9 (3.5-5.1) mmol/L Chloride 101 (98-107) mmol/L Carbon Dioxide 28 (22-30) mmol/L Anion Gap 13.5 (5-15) MEQ/L BUN 10 (9-20) mg/dL Creatinine 0.67 (0.66-1.25) mg/dL Estimated GFR > 60.0 ML/MIN Glucose 100 (74-106) mg/dL Lactic Acid (0.4-2.0) Calcium 9.0 (8.4-10.2) mg/dL Total Bilirubin (0.2-1.3) mg/dL AST (17-59) U/L ALT (0-50) U/L Alkaline Phosphatase (38-126) U/L Troponin I (0.000-0.034) ng/mL Serum Total Protein (6.3-8.2) g/dL Albumin (3.5-5.0) g/dL Urine Color (YELLOW) Urine Appearance (CLEAR) Urine pH (5-6) Ur Specific [place] (1.005-1.025) Urine Protein (Negative) Urine Ketones (NEGATIVE) Urine Blood (0-5) Cristino/ul Urine Nitrite (NEGATIVE) Urine Bilirubin (NEGATIVE) Urine Urobilinogen (0-1) mg/dL Ur Leukocyte Esterase (NEGATIVE) Urine WBC (Auto) (0-5) /HPF Urine RBC (Auto) (0-2) /HPF U Epithel Cells (Auto) (FEW) /HPF Urine Bacteria (Auto) (NEGATIVE) /HPF Urine Culture Reflexed (NO) Urine Glucose (NEGATIVE) mg/dL SARS-CoV-2 (PCR) (NEGATIVE) - Radiology Exams Ordered Rad Exams-Entire Visit: Radiology Procedures Category Date Time Status CHEST 1 VIEW (PORTABLE) Stat Exams 12/20/20 13:58 Completed HEAD WITHOUT CONTRAST [CT] Stat Exams 12/20/20 13:58 Completed MRI BRAIN W/O CONTRAST [MRI] Stat Exams 12/21/20 08:17 Ordered - Procedures and Test Procedures and Tests throughout Hospitalization: Therapy Orders & Screens 12/20/20 20:36 Respiratory Therapy Assessment DAILY Comment: Diagnosis: New onset seizures 12/21/20 08:52 EEG 41-60 Minutes (Normal) ONCE Comment: Reason For Exam: Diagnosis: New onset seizures - Discharge Disposition: Home, Self-Care Condition: Good Prescriptions: New Levetiracetam [Keppra 500 mg ] 500 mg PO BID #60 tablet Continue Cetirizine HCl 10 mg PO DAILY Polyethylene Glycol 3350 17 gm [Miralax Powder 17GM PACKET] 17 gm PO DAILY Fluoxetine HCl 20 mg [Prozac 20 MG] 40 mg PO DAILY Buspirone HCl [Buspar] 15 mg PO TID Aspirin 81 gm Chew [Baby Aspirin 81 mg Chew] 81 mg PO DAILY Psyllium Husk [Fiber] 0.52 gm PO BID Follow up with: KACI ARREDONDO MD [Primary Care Provider] -
[2020-12-21] MEDS: KEPPRA 500 MG PO SCH (09:17)
[2020-12-21] MEDS: BUSPAR 5 MG PO SCH (09:17)
[2020-12-21] MEDS ORDERED: Miralax Powder 17GM PACKET PO SCH (10:00)
[2020-12-21] MEDS ORDERED: CLARITIN 10 MG PO SCH (10:00)
[2020-12-21] MEDS ORDERED: Ativan 1 MG PO ONE (10:00)
[2020-12-21] MEDS ORDERED: Metamucil PACKET PO SCH (10:00)
[2020-12-21] MEDS ORDERED: PSYLLIUM HUSK 0.52 GM PO SCH (10:00)
[2020-12-21] MEDS ORDERED: Prozac 20 MG PO SCH (10:00)
[2020-12-21] MEDS ORDERED: ECOTRIN 81 MG PO SCH (10:00)
[2020-12-21] MEDS ORDERED: PROTONIX 40 MG IV IV SCH (10:00)
[2020-12-21] MEDS ORDERED: NON-FORMULARY ITEM (Cetirizine Hcl [Cetirizine Hcl] 10 MG) PO SCH (10:00)
[2020-12-21] MEDS: Ativan 1 MG PO SCH ×2 (11:13→12:33)
[2020-12-21 12:12] VITALS: BP 131/83; PULSE 96; O2SAT 92
== END 2020-12-21 15:08 | disposition home or self-care (01) ==
LOC: ED 13:44 → MED SURG 18:49
PROVIDERS: ADMIT Family Medicine; ATTEND Family Medicine
DX: R56.9 Unspecified convulsions (principal); R51.9 Headache, unspecified; F79 Unspecified intellectual disabilities; Z79.899 Other long term (current) drug therapy; Z86.73 Personal history of transient ischemic attack (TIA), and cerebral infarction without residual deficits; Z20.822 Contact with and (suspected) exposure to COVID-19
CPT/HCPCS: 36415; 70450; 71045; 80048; 80053; 81001; 83605; 84484; 85025; 93268; 94760; 95812; 96360; 99285; G0378; U0003; Q3014; A9270-GY

== ENCOUNTER 2021-08-18 05:44 | Day surgery (SDC) | payer MEDICARE ==
[2021-08-18] MEDS ORDERED: Lactated Ringers 1,000 ML IV SCH (07:00)
[2021-08-18] MEDS ORDERED: Xylocaine-Mpf 2% 5 Ml Vial ONE (07:32)
[2021-08-18] MEDS ORDERED: DIPRIVAN 200 MG/20 ML IV ONE (07:32)
--- NOTE | 2021-08-18 08:17 | OP ---
SURGERY DATE/TIME: 08/18/2021 0652 PREOPERATIVE DIAGNOSIS: History of colon polyps. POSTOPERATIVE DIAGNOSES: 1) Rectal polyp x1. 2) Mild diverticulosis. PROCEDURE: Colonoscopy. SURGEON: Dante Overton M.D. ANESTHESIA: MAC by Chance Muro CRNA. ESTIMATED BLOOD LOSS: Minimal. SPECIMENS: Hot forceps polypectomy from rectal polyp. DESCRIPTION OF PROCEDURE: After informed written consent was obtained, the patient was taken to the endoscopy suite. He was placed in left lateral decubitus position and anesthesia was titrated to desired level of consciousness. Digital rectal exam showed normal sphincter tone and no internal lesions. The scope was inserted into the rectum and sequentially the entire colonic mucosa was traversed. The level of cecum was reached and verified with direct visualization of the ileocecal valve. Upon withdrawal careful mucosal inspection revealed a small polyp in the proximal rectum. There is some scattered diverticula throughout the sigmoid colon. Prep was noted to be fair. The polyp was grasped with forceps, cauterized and removed in its entirety. Retroflexion showed no other internal lesions. The scope was removed. The patient was transferred to the recovery room in good condition. He has been advised to follow up in a week for pathology.
[2021-08-18 08:29] VITALS: BP 125/77; PULSE 62; O2SAT 98
== END 2021-08-18 08:40 | disposition home or self-care (01) ==
LOC: SDC 05:44
PROVIDERS: ATTEND Family Medicine
DX: Z09 Encounter for follow-up examination after completed treatment for conditions other than malignant neoplasm (principal); K62.1 Rectal polyp; Z86.010 Personal history of colon polyps; K57.30 Diverticulosis of large intestine without perforation or abscess without bleeding
CPT/HCPCS: J2704

== ENCOUNTER 2023-07-03 17:18 | Observation (INO) | payer MEDICARE ==
[2023-07-03 17:44] LABS: Absolute Neutrophil Ct (ANC) 10.66 x10^3/uL (1.4-6.9); BASOPHIL % 0.4 % (0.0-0.4); Basophil (Absolute #) 0.05 x10^3/uL (0-0.4); Eosinophil % 1.3 % (0.00-5.0); Eosinophil (Absolute #) 0.16 x10^3/uL (0-0.5); Hematocrit 38.5 % (42-50); Hemoglobin 13.1 g/dL (12.5-18.0); IMMATURE GRAN # 0.07 x10^3u/L (0.00-0.03); IMMATURE GRAN % 0.5 % (0.00-0.4); Lymphocyte (Absolute #) 1.03 x10^3/uL (1.0-4.6); Lymphocytes % 8.1 % (24.0-44.0); Mean Cell Volume 89.7 fL (78-100); Mean Corpuscular Hemoglobin 30.5 pg (26-32); Mean Platelet Volume 8.5 fL (7.5-11.0); Monocyte (Absolute #) 0.82 x10^3/uL (0.0-1.3); Monocytes % 6.4 % (0.0-12.0); Neutrophil % 83.3 % (36.0-66.0); Platelet Count 393 x10^3/uL (150-450); Red Blood Count 4.29 x10^6/uL (4.1-5.6); Red Cell Distribution Width 12.3 % (11.5-14.0); White Blood Count 12.8 x10^3/uL (4.0-10.5)
[2023-07-03 17:54] LABS: ALBUMIN 3.7 g/dL (3.5-5.0); ANION GAP 11.7 MEQ/L (5-15); BILIRUBIN,TOTAL 0.4 mg/dL (0.2-1.3); Calcium 8.9 mg/dL (8.4-10.2); Creatinine 1 0.62 mg/dL (0.66-1.25); EST GLOMERULAR FILTRATION RATE 106.1 ML/MIN; Total Protein 7.7 g/dL (6.3-8.2)
--- NOTE | 2023-07-03 18:07 | ERPHSYRPT ---
- History of Present Illness Time Seen by Provider: 07/03/23 17:50 Source: patient Exam Limitations: no limitations Patient Subjective Stated Complaint: Weakness Triage Nursing Assessment: Patient brought back to ED per w/c and transferred to bed per self. Patient A+O X 3. Patient's skin pink, warm and dry. Patient has dx of Mental Retardation and has 24 hour care. Patient's staff stated since Sunday patient hasn't been himself with his gait being off, poor appettite, fatigue and increased slurred speech. Patient was at initially and sent down to ER for further workup. Patient denies pain or discomfort. Physician History: 63-year-old male history of MR requires 24-hour care presents to our ED as a referral from [facility] with caregiver for evaluation of pallor, generalized weakness, unsteady gait slurred speech fatigue decreased appetite. Patient denies pain. Patient states he feels fine. No nausea no vomiting no fevers. No chest pain or shortness of breath. Symptoms were observed today. Symptoms are mild to moderate in intensity. No specific worsening or improving factors. HPI limited due to patient's cognitive function. Portions of this note were created with voice recognition technology. There may be grammatical, spelling, punctuation or sound alike errors Timing/Duration: today Severity: moderate Modifying Factors: Improves With: nothing Associated Symptoms: denies symptoms Allergies/Adverse Reactions: lorazepam [From Ativan] Allergy (Unknown, Verified 07/03/23 17:20) lexicam Allergy (Intermediate, Uncoded 07/03/23 17:20) itchy Home Medications: Buspirone HCl [Buspar] 15 mg PO TID 10/23/20 [History] Fluoxetine HCl 20 mg [Prozac 20 MG] 20 mg PO DAILY 10/23/20 [History] Polyethylene Glycol 3350 17 gm [Miralax Powder 17GM PACKET] 17 gm PO DAILY 10/23/20 [History] Acetaminophen 325 mg [Tylenol 325 mg] 2 tab PO Q6H PRN 08/12/21 [History] Hydrocortisone 2.5% 30 gm [Anusol-Hc 2.5% Cream 30 gm] 1 applic TOP UD 08/12/21 [History] Ketoconazole 1 applic TOP UD PRN 08/12/21 [History] ARIPiprazole [Aripiprazole] 2 mg PO DAILY 07/03/23 [History] Amantadine HCl [Amantadine] 100 mg PO TID 07/03/23 [History] Calcium Polycarbophil [Fiber-Lax] 1 tab PO BID 07/03/23 [History] Cholecalciferol (Vitamin D3) [Vitamin D3] 2,000 unit PO DAILY 07/03/23 [History] Fexofenadine HCl [Zaida Allergy] 180 mg PO DAILY 07/03/23 [History] Hydroxyzine HCl 25 mg [Atarax 25 mg] 50 mg PO HS 07/03/23 [History] Psyllium Packet [Metamucil PACKET] 1 packet PO DAILY 07/03/23 [History] hydrOXYzine HCL [Hydroxyzine HCl] 10 mg PO BID 07/03/23 [History] Hx Tetanus, Diphtheria Vaccination/Date Given: No Hx Influenza Vaccination/Date Given: Yes Hx Pneumococcal Vaccination/Date Given: Yes Immunizations Up to Date: Yes Travel Risk - International Travel Have you traveled outside of the country in past 3 weeks: No - Emerging Infectious Disease Are you exhibiting symptoms associated with any current EIDs: No - Review of Systems Constitutional: No Symptoms, No Fever, No Chills Eyes: No Symptoms Ears, Nose, & Throat: No Symptoms Respiratory: No Symptoms, No Cough, No Dyspnea Cardiac: No Symptoms, No Chest Pain, No Edema, No Syncope Abdominal/Gastrointestinal: No Symptoms, No Abdominal Pain, No Nausea, No Vomiting, No Diarrhea Genitourinary Symptoms: No Symptoms, No Dysuria Musculoskeletal: No Symptoms, No Back Pain, No Neck Pain Skin: No Symptoms, No Rash Neurological: No Symptoms, No Dizziness, No Focal Weakness, No Sensory Changes Psychological: No Symptoms Endocrine: No Symptoms Hematologic/Lymphatic: No Symptoms Immunological/Allergic: No Symptoms All Other Systems: Reviewed and Negative - Past Medical History Pertinent Past Medical History: Yes Neurological History: TIA ENT History: Other Cardiac History: No Pertinent History Respiratory History: No Pertinent History Endocrine Medical History: No Pertinent History Musculoskeletal History: No Pertinent History GI Medical History: No Pertinent History History: No Pertinent History Psycho-Social History: Anxiety, Other Male Reproductive Disorders: No Pertinent History Other Medical History: Mental Retardation from , mood disorder - Past Surgical History Past Surgical History: Yes Neuro Surgical History: No Pertinent History Cardiac: No Pertinent History Respiratory: No Pertinent History Gastrointestinal: Appendectomy Genitourinary: No Pertinent History Musculoskeletal: No Pertinent History Male Surgical History: No Pertinent History - Social History Smoking Status: Never smoker Exposure to second hand smoke: No Drug Use: none Patient Lives Alone: No - Nursing Vital Signs Nursing Vital Signs: Initial Vital Signs Temperature 98.9 F 07/03/23 17:45 Pulse Rate 80 07/03/23 17:45 Respiratory Rate 18 07/03/23 17:45 Blood Pressure 114/70 07/03/23 17:45 O2 Sat by Pulse Oximetry 96 07/03/23 17:45 Pain Scale Pain Intensity 0 - Physical Exam General Appearance: no apparent distress, alert Eye Exam: PERRL/EOMI, eyes nml inspection Ears, Nose, Throat Exam: normal ENT inspection, TMs normal, pharynx normal, moist mucous membranes Neck Exam: normal inspection, non-tender, supple, full range of motion Respiratory Exam: normal breath sounds, lungs clear, airway intact, No respiratory distress Cardiovascular Exam: regular rate/rhythm, normal heart sounds, normal peripheral pulses Gastrointestinal/Abdomen Exam: soft, normal bowel sounds, No tenderness, No mass Back Exam: normal inspection, normal range of motion, No CVA tenderness, No vertebral tenderness Extremity Exam: normal inspection, normal range of motion, pelvis stable Neurologic Exam: alert, oriented x 3, cooperative, normal mood/affect, nml cerebellar function, nml station & gait, sensation nml, No motor deficits Skin Exam: normal color, warm, dry, No rash Lymphatic Exam: No adenopathy SpO2 Interpretation: normal SpO2: 98 O2 Delivery: Room Air - Course Nursing assessment & vital signs reviewed: Yes EKG Interpreted by Me: RATE (77), Sinus Rhythm, NORMAL AXIS, NORMAL INTERVALS - CT Exams Head CT Interpretation: Tele-radiologist Report (No acute findings) Ordered Tests: Active Orders 24 hr Category Date Time Status Certified Dietary Manager STAT Care 07/03/23 17:26 Active EKG-ER Only STAT Care 07/03/23 17:25 Active IV Insertion STAT Care 07/03/23 17:25 Active Pulse Oximetry (ED) STAT Care 07/03/23 17:25 Active HEAD WITHOUT CONTRAST [CT] Stat Exams 07/03/23 17:27 Taken CBC W DIFF Stat Lab 07/03/23 17:30 Completed CMP Stat Lab 07/03/23 17:30 Completed TROPONIN Q4H Lab 07/03/23 17:30 Completed TROPONIN Q4H Lab 07/03/23 21:25 Received TROPONIN Q4H Lab 07/04/23 01:30 Ordered Transfer Order Routine Transfer 07/03/23 Ordered Lab/Rad Data: Laboratory Result Diagrams 07/03/23 17:30 07/03/23 17:30 Laboratory Results 07/03/23 07/03/23 07/03/23 Range/Units 17:30 17:30 17:30 WBC 12.8 H (4.0-10.5) x10^3/uL RBC 4.29 (4.1-5.6) x10^6/uL Hgb 13.1 (12.5-18.0) g/dL Hct 38.5 L (42-50) % MCV 89.7 (78-100) fL MCH 30.5 (26-32) pg MCHC 34.0 (32-36) g/dL RDW 12.3 (11.5-14.0) % Plt Count 393 (150-450) x10^3/uL MPV 8.5 (7.5-11.0) fL Gran % 83.3 H (36.0-66.0) % Immature Gran % (Auto) 0.5 H (0.00-0.4) % Nucleat RBC Rel Count 0.0 (0.00-0.1) % Eos # (Auto) 0.16 (0-0.5) x10^3/uL Immature Gran # (Auto) 0.07 H (0.00-0.03) x10^3u/L Absolute Lymphs (auto) 1.03 (1.0-4.6) x10^3/uL Absolute Monos (auto) 0.82 (0.0-1.3) x10^3/uL Absolute Nucleated RBC 0.00 (0.00-0.01) x10^3u/L Lymphocytes % 8.1 L (24.0-44.0) % Monocytes % 6.4 (0.0-12.0) % Eosinophils % 1.3 (0.00-5.0) % Basophils % 0.4 (0.0-0.4) % Absolute Granulocytes 10.66 H (1.4-6.9) x10^3/uL Basophils # 0.05 (0-0.4) x10^3/uL Sodium 135 (135-145) mmol/L Potassium 4.0 (3.5-5.1) mmol/L Chloride 102 (98-107) mmol/L Carbon Dioxide 26 (22-30) mmol/L Anion Gap 11.7 (5-15) MEQ/L BUN 13 (9-20) mg/dL Creatinine 0.62 L (0.66-1.25) mg/dL Estimated GFR 106.1 ML/MIN Glucose 114 H (74-106) mg/dL Calcium 8.9 (8.4-10.2) mg/dL Total Bilirubin 0.40 (0.2-1.3) mg/dL AST 27 (17-59) U/L ALT 23 (0-50) U/L Alkaline Phosphatase 151 H (38-126) U/L Troponin I < 0.012 (0.000-0.033) ng/mL Serum Total Protein 7.7 (6.3-8.2) g/dL Albumin 3.7 (3.5-5.0) g/dL - Progress Progress: improved Progress Note: 63-year-old male history of MR presents to our ED with caregiver for evaluation of unsteady gait slurred speech weakness. CT head negative for acute intracranial pathology. Teleneurologist requesting admission for rule out TIA/stroke. Case discussed with teleneurologist at 9:30 PM. Hospitalist accepts admission at 9:37 PM. Plan of care discussed with caregiver. They agree to admission to [facility] for further evaluation and treatment. Portions of this note were created with voice recognition technology. There may be grammatical, spelling, punctuation or sound alike errors Complexity problem addressed is moderate acute complicated Critical care time Complex of data reviewed and analyzed is extensive. Test ordered test reviewed results analyzed and correlated clinically with history and physical exam. Risk of complication and or risk of morbidity/mortality patient management is high. Patient requires hospitalization for further evaluation and treatment. Vital stable. Time spent admit patient is approximately 30 minutes. Plan of care established for shared decision making. No social determinants health present impede follow-up. Portions of this note were created with voice recognition technology. There may be grammatical, spelling, punctuation or sound alike errors 07/03/23 21:38 Counseled pt/family regarding: lab results, diagnosis, rad results - Departure Departure Disposition: Observation Clinical Impression: TIA (transient ischemic attack), Weakness, Slurred speech Condition: Stable Critical Care Time: No Referrals: KACI ARREDONDO MD [Primary Care Provider] - Follow up/PCP as directed
--- NOTE | 2023-07-03 23:35 | PCM.HP ---
History of Present Illness - Chief Complaint Chief Complaint: TIA, slurred speech weakness Date: 07/03/23 History of Present Illness: Mr. EDGE is a 63 year old male with a past medical history significant for mental retardation who requires 24hr care and was brought to the hospital after she noticed increasing lethargy, confusion, unsteady gain and slurred speech. He was seen and evaluated in the ER. No complaints of weakness, chest pain, shortness of breath, nausea, vomiting or diarrhea. No complaints of dysuria, hematuria or frequency. Initial labs were normal other than an elevated WBC of 12.8k. Patient with low grade fever at admission at 99.0, but has since come down to 98.6. He was seen by teleneurology and has been recommended for admission with MRI in the morning. - Review of Systems Constitutional: Fever, No Chills, No Fatigue, No Lethargy Eyes: No Vision Changes Ears, Nose, & Throat: No Painful Swallowing Respiratory: No Cough, No Short Of Breath Cardiac: No Chest Pain, No Palpitations Abdominal/Gastrointestinal: No Abdominal Pain, No Nausea, No Vomiting Genitourinary Symptoms: No Dysuria, No Frequency, No Hematuria, No Hesitancy Musculoskeletal: No Arthralgias, No Back Pain Skin: No Cellulitis, No Rash Neurological: No Dizziness, No Focal Weakness, No Lethargy Psychological: No Suicidal Ideations Endocrine: No Polyuria, No Polydipsia Medications & Allergies Home Medications: Home Medication List Buspirone HCl [Buspar] 15 mg PO TID 10/23/20 [History Confirmed 07/03/23] Fluoxetine HCl 20 mg [Prozac 20 MG] 20 mg PO DAILY 10/23/20 [History Confirmed 07/03/23] Polyethylene Glycol 3350 17 gm [Miralax Powder 17GM PACKET] 17 gm PO DAILY 10/23/20 [History Confirmed 07/03/23] Acetaminophen 325 mg [Tylenol 325 mg] 2 tab PO Q6H PRN 08/12/21 [History Confirmed 07/03/23] Hydrocortisone 2.5% 30 gm [Anusol-Hc 2.5% Cream 30 gm] 1 applic TOP UD 08/12/21 [History Confirmed 07/03/23] Ketoconazole 1 applic TOP UD PRN 08/12/21 [History Confirmed 07/03/23] Aspirin 81 gm Chew [Baby Aspirin 81 mg Chew] 81 mg PO DAILY #0 08/18/21 [Rx Confirmed 07/03/23] ARIPiprazole [Aripiprazole] 2 mg PO DAILY 07/03/23 [History Confirmed 07/03/23] Amantadine HCl [Amantadine] 100 mg PO TID 07/03/23 [History Confirmed 07/03/23] Calcium Polycarbophil [Fiber-Lax] 1 tab PO BID 07/03/23 [History Confirmed 07/03/23] Cholecalciferol (Vitamin D3) [Vitamin D3] 2,000 unit PO DAILY 07/03/23 [History Confirmed 07/03/23] Fexofenadine HCl [Zaida Allergy] 180 mg PO DAILY 07/03/23 [History Confirmed 07/03/23] Hydroxyzine HCl 25 mg [Atarax 25 mg] 50 mg PO HS 07/03/23 [History Confirmed 07/03/23] Psyllium Packet [Metamucil PACKET] 1 packet PO DAILY 07/03/23 [History Confirmed 07/03/23] hydrOXYzine HCL [Hydroxyzine HCl] 10 mg PO BID 07/03/23 [History Confirmed 07/03/23] Allergies/Adverse Reactions: Allergies Allergy/AdvReac Type Severity Reaction Status Date / Time lorazepam [From Ativan] Allergy Unknown Verified 07/03/23 17:20 lexicam Allergy Intermediate itchy Uncoded 07/03/23 17:20 - Past Medical History Past Medical History: Yes Neurological History: TIA ENT History: Other Cardiac History: No Pertinent History Respiratory History: No Pertinent History Endocrine Medical History: No Pertinent History Musculoskelatal History: No Pertinent History GI Medical History: No Pertinent History History: No Pertinent History Pyscho-Social History: Anxiety, Other Male Reproductive Disorders: No Pertinent History Comment: Mental Retardation from , mood disorder - Past Surgical History Past Surgical History: Yes Neuro Surgical History: No Pertinent History Cardiac History: No Pertinent History Respiratory Surgery: No Pertinent History GI Surgical History: Appendectomy Genitourinary Surgical Hx: No Pertinent History Musculskeletal Surgical Hx: No Pertinent History Male Surgical History: No Pertinent History - Social History Smoking Status: Never smoker Exposure to second hand smoke: No Alcohol: None Drug Use: none - Social Determinants of Health Will the patient participate in the screening: Yes Do you worry about a steady place to live?: Yes Do you have any problems with any of the following?: No known problems In the past 12 months,have you had to go without utilities?: No Have you or anyone in your house had to go without enough: No Transportation Issues: No Has anyone in your support network made you feel unsafe?: No - Physical Exam Vital Signs: Vital Signs - 24 hr Temp Pulse Resp BP BP Pulse Ox 07/03/23 22:00 75 29 H 116/76 95 07/03/23 21:45 98 07/03/23 21:30 74 29 H 112/66 94 L 07/03/23 21:00 76 21 116/67 95 07/03/23 20:30 76 15 107/69 95 07/03/23 20:00 73 19 105/64 94 L 07/03/23 19:30 75 18 102/64 95 07/03/23 17:45 98.9 F 80 18 114/70 98 General Appearance: no apparent distress Neurologic Exam: alert Ears, Nose, Throat Exam: dry mucous membranes Neck Exam: supple Respiratory Exam: No respiratory distress Cardiovascular Exam: regular rate/rhythm Gastrointestinal/Abdomen Exam: soft Extremity Exam: No pedal edema, No swelling Skin Exam: normal color, No rash Results - Labs Lab/Micro Results: Lab Results-Last 24 Hours 07/03/23 07/03/23 07/03/23 Range/Units 17:30 17:30 17:30 WBC 12.8 H (4.0-10.5) x10^3/uL RBC 4.29 (4.1-5.6) x10^6/uL Hgb 13.1 (12.5-18.0) g/dL Hct 38.5 L (42-50) % MCV 89.7 (78-100) fL MCH 30.5 (26-32) pg MCHC 34.0 (32-36) g/dL RDW 12.3 (11.5-14.0) % Plt Count 393 (150-450) x10^3/uL MPV 8.5 (7.5-11.0) fL Gran % 83.3 H (36.0-66.0) % Immature Gran % (Auto) 0.5 H (0.00-0.4) % Nucleat RBC Rel Count 0.0 (0.00-0.1) % Eos # (Auto) 0.16 (0-0.5) x10^3/uL Immature Gran # (Auto) 0.07 H (0.00-0.03) x10^3u/L Absolute Lymphs (auto) 1.03 (1.0-4.6) x10^3/uL Absolute Monos (auto) 0.82 (0.0-1.3) x10^3/uL Absolute Nucleated RBC 0.00 (0.00-0.01) x10^3u/L Lymphocytes % 8.1 L (24.0-44.0) % Monocytes % 6.4 (0.0-12.0) % Eosinophils % 1.3 (0.00-5.0) % Basophils % 0.4 (0.0-0.4) % Absolute Granulocytes 10.66 H (1.4-6.9) x10^3/uL Basophils # 0.05 (0-0.4) x10^3/uL Sodium 135 (135-145) mmol/L Potassium 4.0 (3.5-5.1) mmol/L Chloride 102 (98-107) mmol/L Carbon Dioxide 26 (22-30) mmol/L Anion Gap 11.7 (5-15) MEQ/L BUN 13 (9-20) mg/dL Creatinine 0.62 L (0.66-1.25) mg/dL Estimated GFR 106.1 ML/MIN Glucose 114 H (74-106) mg/dL Calcium 8.9 (8.4-10.2) mg/dL Total Bilirubin 0.40 (0.2-1.3) mg/dL AST 27 (17-59) U/L ALT 23 (0-50) U/L Alkaline Phosphatase 151 H (38-126) U/L Troponin I < 0.012 (0.000-0.033) ng/mL Serum Total Protein 7.7 (6.3-8.2) g/dL Albumin 3.7 (3.5-5.0) g/dL 07/03/23 Range/Units 21:25 WBC (4.0-10.5) x10^3/uL RBC (4.1-5.6) x10^6/uL Hgb (12.5-18.0) g/dL Hct (42-50) % MCV (78-100) fL MCH (26-32) pg MCHC (32-36) g/dL RDW (11.5-14.0) % Plt Count (150-450) x10^3/uL MPV (7.5-11.0) fL Gran % (36.0-66.0) % Immature Gran % (Auto) (0.00-0.4) % Nucleat RBC Rel Count (0.00-0.1) % Eos # (Auto) (0-0.5) x10^3/uL Immature Gran # (Auto) (0.00-0.03) x10^3u/L Absolute Lymphs (auto) (1.0-4.6) x10^3/uL Absolute Monos (auto) (0.0-1.3) x10^3/uL Absolute Nucleated RBC (0.00-0.01) x10^3u/L Lymphocytes % (24.0-44.0) % Monocytes % (0.0-12.0) % Eosinophils % (0.00-5.0) % Basophils % (0.0-0.4) % Absolute Granulocytes (1.4-6.9) x10^3/uL Basophils # (0-0.4) x10^3/uL Sodium (135-145) mmol/L Potassium (3.5-5.1) mmol/L Chloride (98-107) mmol/L Carbon Dioxide (22-30) mmol/L Anion Gap (5-15) MEQ/L BUN (9-20) mg/dL Creatinine (0.66-1.25) mg/dL Estimated GFR ML/MIN Glucose (74-106) mg/dL Calcium (8.4-10.2) mg/dL Total Bilirubin (0.2-1.3) mg/dL AST (17-59) U/L ALT (0-50) U/L Alkaline Phosphatase (38-126) U/L Troponin I < 0.012 (0.000-0.033) ng/mL Serum Total Protein (6.3-8.2) g/dL Albumin (3.5-5.0) g/dL - Radiology Impressions Radiology Exams & Impressions: Radiology Procedures Category Date Time Status HEAD WITHOUT CONTRAST [CT] Stat Exams 07/03/23 17:27 Taken Assessment/Plan (1) Leukocytosis Current Visit: Yes Status: Acute Assessment & Plan: Elevated WBC with slight left shift may indicate underlying infection 1. Will check u/a, culture 2. Defer antibiotics for now unless fever or positive culture 3. Trend WBC 4. Monitor for signs/symptoms of infection Code(s): D72.829 - ELEVATED WHITE BLOOD CELL COUNT, UNSPECIFIED (2) TIA (transient ischemic attack) Current Visit: Yes Status: Acute Assessment & Plan: Unclear if this is neurologic event, seen by teleneurology 1. ASA 2. MRI brain 3. PT/OT eval 4. Plans per neuro Code(s): G45.9 - TRANSIENT CEREBRAL ISCHEMIC ATTACK, UNSPECIFIED (3) Mental retardation Current Visit: No Status: Chronic Assessment & Plan: Followed by caregiver Code(s): F79 - UNSPECIFIED INTELLECTUAL DISABILITIES Telemedicine Encounter - Telemedicine Encounter Telemedicine Encounter: The entirety of this encounter was performed via Telemedicine"
[2023-07-03] MEDS ORDERED: TYLENOL 325 MG PO PRN (23:55)
[2023-07-03] MEDS ORDERED: ATARAX 25 MG PO PRN (23:58)
[2023-07-04] MEDS: Dextrose 5% -0.45 NaCl 1000 ML 1,000 ML IV SCH (00:21)
[2023-07-04] MEDS: BUSPAR 5 MG PO SCH (00:35)
[2023-07-04 02:28] LABS: Absolute Neutrophil Ct (ANC) 8.27 x10^3/uL (1.4-6.9); BASOPHIL % 0.6 % (0.0-0.4); Basophil (Absolute #) 0.06 x10^3/uL (0-0.4); Eosinophil % 2.5 % (0.00-5.0); Eosinophil (Absolute #) 0.27 x10^3/uL (0-0.5); Hematocrit 35.7 % (42-50); Hemoglobin 11.9 g/dL (12.5-18.0); IMMATURE GRAN # 0.05 x10^3u/L (0.00-0.03); IMMATURE GRAN % 0.5 % (0.00-0.4); Mean Cell Volume 90.2 fL (78-100); Mean Corpuscular Hemoglobin 30.1 pg (26-32); Mean Corpuscular Hgb Concent. 33.3 g/dL (32-36); Mean Platelet Volume 8.5 fL (7.5-11.0); Monocyte (Absolute #) 0.85 x10^3/uL (0.0-1.3); Monocytes % 7.9 % (0.0-12.0); Neutrophil % 76.5 % (36.0-66.0); Platelet Count 353 x10^3/uL (150-450); Red Blood Count 3.96 x10^6/uL (4.1-5.6); Red Cell Distribution Width 12.2 % (11.5-14.0); White Blood Count 10.8 x10^3/uL (4.0-10.5)
[2023-07-04 02:42] LABS: ANION GAP 11.5 MEQ/L (5-15); Calcium 8.5 mg/dL (8.4-10.2); Creatinine 1 0.53 mg/dL (0.66-1.25); EST GLOMERULAR FILTRATION RATE 111.2 ML/MIN; Potassium 3.7 mmol/L (3.5-5.1)
[2023-07-04] MEDS ORDERED: TYLENOL 325 MG PO PRN (07:48)
[2023-07-04] MEDS ORDERED: MEDICATION INTERVENTION MC SCH ×2 (08:15)
--- NOTE | 2023-07-04 08:40 | XRAY ---
Indication: Weakness. Multiple contiguous axial images obtained through the head without contrast. Comparison: December 20, 2020 Again age-appropriate global atrophy with minimal periventricular degenerative micro-ischemia bilaterally. No acute intracranial hemorrhage, abnormal extra-axial fluid collection, or mass effect. Fourth ventricle is midline without hydrocephalus. Rosales-white matter differentiation preserved. Bony calvarium intact. Again partial opacification both mastoid air cells presumed inflammatory. Visualized paranasal sinuses clear. Impression: Nonacute senile brain. Again partial opacification both mastoid air cells presumed inflammatory.
[2023-07-04] MEDS ORDERED: ANUSOL-HC 2.5% CREAM 30 GM TOP PRN (10:00)
[2023-07-04] MEDS ORDERED: AMANTADINE HCL 100 MG PO SCH (10:00)
[2023-07-04] MEDS ORDERED: BUSPIRONE HCL 15 MG PO SCH (10:00)
[2023-07-04] MEDS ORDERED: NON-FORMULARY ITEM (Psyllium Packet*** [Metamucil Packet***] 1 PKT Packet) PO SCH (10:00)
[2023-07-04] MEDS ORDERED: NON-FORMULARY ITEM (Fexofenadine Hcl [Allegra Allergy] 180 MG Tablet) PO SCH (10:00)
[2023-07-04] MEDS ORDERED: NON-FORMULARY ITEM (Aripiprazole [Aripiprazole] 2 MG Tablet) PO SCH (10:00)
[2023-07-04] MEDS ORDERED: NON-FORMULARY ITEM (Cholecalciferol (Vitamin D3) [Vitamin D3] 50 MCG Capsule) PO SCH (10:00)
[2023-07-04] MEDS ORDERED: BUSPAR 5 MG PO SCH (10:00)
--- NOTE | 2023-07-04 10:51 | PCM.NOTE ---
Date and Time: 07/04/23 1046 Subjective Assessment: 07/04/23 Mr. EDGE is a 63 year old male with a past medical history significant for mental retardation who requires 24hr care, TIA, anxiety, and mood disorder. He was brought to the hospital after caregiver noticed increasing lethargy, confusion, unsteady gait, and slurred speech. No complaints of weakness, chest pain, shortness of breath, nausea, vomiting or diarrhea. No complaints of dysuria, hematuria or frequency. Initial labs were normal other than an elevated WBC of 12.8k. Patient with low grade fever at admission at 99.0, but has since come down to 98.6. He was seen by teleneurology and has been recommended for admission with MRI today. This is scheduled to be done at 1300. UA is currently pending. Reviewed teleneurology note and appropriate labs and testing ordered. CT of head was negative. PT/ OT/ ST to eval pt. Pt does not appear in any distress, is awake and alert today. Unknown baseline as there is no home staff or family members here today. - Review of Systems Constitutional: No Fever, No Chills Eyes: No Symptoms Ears, Nose, & Throat: No Symptoms Respiratory: No Cough, No Short Of Breath Cardiac: No Chest Pain, No Edema, No Syncope Abdominal/Gastrointestinal: No Abdominal Pain, No Nausea, No Vomiting, No Diarrhea Genitourinary Symptoms: No Dysuria Musculoskeletal: No Back Pain, No Neck Pain Skin: No Rash Neurological: No Dizziness, No Focal Weakness, No Sensory Changes Psychological: No Symptoms Endocrine: No Symptoms Hematologic/Lymphatic: No Symptoms Immunological/Allergic: No Symptoms Objective Exam General Appearance: no apparent distress, alert Neurologic Exam: alert, cooperative, normal mood/affect, nml cerebellar function, sensation nml, No motor deficits Skin Exam: normal color, warm, dry Eye Exam: PERRL, EOMI, eyes nml inspection Ears, Nose, Throat Exam: normal ENT inspection, pharynx normal, moist mucous membranes Neck Exam: normal inspection, non-tender, supple, full range of motion Respiratory Exam: normal breath sounds, lungs clear, No respiratory distress Cardiovascular Exam: regular rate/rhythm, normal heart sounds Gastrointestinal/Abdomen Exam: soft, No tenderness, No mass Extremity Exam: normal inspection, normal range of motion Back Exam: normal inspection, normal range of motion, No CVA tenderness, No vertebral tenderness Male Genitalia Exam: deferred Rectal Exam: deferred Objective Data Vital Signs: Vital Signs - 24 hr Temp Pulse Resp BP BP Pulse Ox 07/04/23 09:19 95 07/04/23 07:09 97.2 F 75 18 120/76 90 L 07/04/23 04:00 98.1 F 74 20 126/74 93 L 07/04/23 00:00 98.7 F 74 16 130/76 94 L 07/03/23 22:46 99.4 F 82 29 H 122/68 95 07/03/23 22:00 75 29 H 116/76 95 07/03/23 21:45 98 07/03/23 21:30 74 29 H 112/66 94 L 07/03/23 21:00 76 21 116/67 95 07/03/23 20:30 76 15 107/69 95 07/03/23 20:00 73 19 105/64 94 L 07/03/23 19:30 75 18 102/64 95 07/03/23 17:45 98.9 F 80 18 114/70 98 Pain Assessment - Last Documented Pain Intensity 0 Intake and Output: Intake & Output 07/01/23 07/02/23 07/03/23 07/04/23 11:59 11:59 11:59 11:59 Weight 92.9 kg Lab Results: Lab Results-Last 24 Hours 07/03/23 07/03/23 07/03/23 Range/Units 17:30 17:30 17:30 WBC 12.8 H (4.0-10.5) x10^3/uL RBC 4.29 (4.1-5.6) x10^6/uL Hgb 13.1 (12.5-18.0) g/dL Hct 38.5 L (42-50) % MCV 89.7 (78-100) fL MCH 30.5 (26-32) pg MCHC 34.0 (32-36) g/dL RDW 12.3 (11.5-14.0) % Plt Count 393 (150-450) x10^3/uL MPV 8.5 (7.5-11.0) fL Gran % 83.3 H (36.0-66.0) % Immature Gran % (Auto) 0.5 H (0.00-0.4) % Nucleat RBC Rel Count 0.0 (0.00-0.1) % Eos # (Auto) 0.16 (0-0.5) x10^3/uL Immature Gran # (Auto) 0.07 H (0.00-0.03) x10^3u/L Absolute Lymphs (auto) 1.03 (1.0-4.6) x10^3/uL Absolute Monos (auto) 0.82 (0.0-1.3) x10^3/uL Absolute Nucleated RBC 0.00 (0.00-0.01) x10^3u/L Lymphocytes % 8.1 L (24.0-44.0) % Monocytes % 6.4 (0.0-12.0) % Eosinophils % 1.3 (0.00-5.0) % Basophils % 0.4 (0.0-0.4) % Absolute Granulocytes 10.66 H (1.4-6.9) x10^3/uL Basophils # 0.05 (0-0.4) x10^3/uL Sodium 135 (135-145) mmol/L Potassium 4.0 (3.5-5.1) mmol/L Chloride 102 (98-107) mmol/L Carbon Dioxide 26 (22-30) mmol/L Anion Gap 11.7 (5-15) MEQ/L BUN 13 (9-20) mg/dL Creatinine 0.62 L (0.66-1.25) mg/dL Estimated GFR 106.1 ML/MIN Glucose 114 H (74-106) mg/dL Calcium 8.9 (8.4-10.2) mg/dL Total Bilirubin 0.40 (0.2-1.3) mg/dL AST 27 (17-59) U/L ALT 23 (0-50) U/L Alkaline Phosphatase 151 H (38-126) U/L Troponin I < 0.012 (0.000-0.033) ng/mL Serum Total Protein 7.7 (6.3-8.2) g/dL Albumin 3.7 (3.5-5.0) g/dL 07/03/23 07/04/23 07/04/23 Range/Units 21:25 02:05 02:05 WBC 10.8 H (4.0-10.5) x10^3/uL RBC 3.96 L (4.1-5.6) x10^6/uL Hgb 11.9 L (12.5-18.0) g/dL Hct 35.7 L (42-50) % MCV 90.2 (78-100) fL MCH 30.1 (26-32) pg MCHC 33.3 (32-36) g/dL RDW 12.2 (11.5-14.0) % Plt Count 353 (150-450) x10^3/uL MPV 8.5 (7.5-11.0) fL Gran % 76.5 H (36.0-66.0) % Immature Gran % (Auto) 0.5 H (0.00-0.4) % Nucleat RBC Rel Count 0.0 (0.00-0.1) % Eos # (Auto) 0.27 (0-0.5) x10^3/uL Immature Gran # (Auto) 0.05 H (0.00-0.03) x10^3u/L Absolute Lymphs (auto) 1.30 (1.0-4.6) x10^3/uL Absolute Monos (auto) 0.85 (0.0-1.3) x10^3/uL Absolute Nucleated RBC 0.00 (0.00-0.01) x10^3u/L Lymphocytes % 12.0 L (24.0-44.0) % Monocytes % 7.9 (0.0-12.0) % Eosinophils % 2.5 (0.00-5.0) % Basophils % 0.6 (0.0-0.4) % Absolute Granulocytes 8.27 H (1.4-6.9) x10^3/uL Basophils # 0.06 (0-0.4) x10^3/uL Sodium (135-145) mmol/L Potassium (3.5-5.1) mmol/L Chloride (98-107) mmol/L Carbon Dioxide (22-30) mmol/L Anion Gap (5-15) MEQ/L BUN (9-20) mg/dL Creatinine (0.66-1.25) mg/dL Estimated GFR ML/MIN Glucose (74-106) mg/dL Calcium (8.4-10.2) mg/dL Total Bilirubin (0.2-1.3) mg/dL AST (17-59) U/L ALT (0-50) U/L Alkaline Phosphatase (38-126) U/L Troponin I < 0.012 < 0.012 (0.000-0.033) ng/mL Serum Total Protein (6.3-8.2) g/dL Albumin (3.5-5.0) g/dL 07/04/23 Range/Units 02:05 WBC (4.0-10.5) x10^3/uL RBC (4.1-5.6) x10^6/uL Hgb (12.5-18.0) g/dL Hct (42-50) % MCV (78-100) fL MCH (26-32) pg MCHC (32-36) g/dL RDW (11.5-14.0) % Plt Count (150-450) x10^3/uL MPV (7.5-11.0) fL Gran % (36.0-66.0) % Immature Gran % (Auto) (0.00-0.4) % Nucleat RBC Rel Count (0.00-0.1) % Eos # (Auto) (0-0.5) x10^3/uL Immature Gran # (Auto) (0.00-0.03) x10^3u/L Absolute Lymphs (auto) (1.0-4.6) x10^3/uL Absolute Monos (auto) (0.0-1.3) x10^3/uL Absolute Nucleated RBC (0.00-0.01) x10^3u/L Lymphocytes % (24.0-44.0) % Monocytes % (0.0-12.0) % Eosinophils % (0.00-5.0) % Basophils % (0.0-0.4) % Absolute Granulocytes (1.4-6.9) x10^3/uL Basophils # (0-0.4) x10^3/uL Sodium 136 (135-145) mmol/L Potassium 3.7 (3.5-5.1) mmol/L Chloride 103 (98-107) mmol/L Carbon Dioxide 25 (22-30) mmol/L Anion Gap 11.5 (5-15) MEQ/L BUN 10 (9-20) mg/dL Creatinine 0.53 L (0.66-1.25) mg/dL Estimated GFR 111.2 ML/MIN Glucose 112 H (74-106) mg/dL Calcium 8.5 (8.4-10.2) mg/dL Total Bilirubin (0.2-1.3) mg/dL AST (17-59) U/L ALT (0-50) U/L Alkaline Phosphatase (38-126) U/L Troponin I (0.000-0.033) ng/mL Serum Total Protein (6.3-8.2) g/dL Albumin (3.5-5.0) g/dL Radiology Exams: Radiology Procedures Category Date Time Status CAROTID BILATERAL [US] Routine Exams 07/04/23 09:28 Ordered ECHO W/2D AND DOPPLER [US] Routine Exams 07/04/23 09:25 Ordered HEAD WITHOUT CONTRAST [CT] Stat Exams 07/03/23 17:27 Completed MRI BRAIN W & W/O CONTRAST [MRI] Routine Exams 07/04/23 08:00 Ordered Assessment/Plan (1) Leukocytosis Current Visit: Yes Status: Acute Assessment & Plan: - UA Pending - WBC improved 10.8 - no temp overnight Code(s): D72.829 - ELEVATED WHITE BLOOD CELL COUNT, UNSPECIFIED (2) TIA (transient ischemic attack) Current Visit: Yes Status: Acute Assessment & Plan: - CT head 07/03/23 Impression: Nonacute senile brain. Again partial opacification both mastoid air cells presumed inflammatory. - MRI brain pending - Reviewed neurology note and agree with plan of care, recommended labs and radiology testing ordered. - PT, OT, ST- eval - atorvastatin 40mg daily started - 2LNC ordered as pt is 90% on RA- keep O2 > 92% Code(s): G45.9 - TRANSIENT CEREBRAL ISCHEMIC ATTACK, UNSPECIFIED (3) Mental retardation Current Visit: No Status: Chronic Assessment & Plan: - Followed by caregiver VTE: Lovenox PPI: Pantoprazole Next of KIN: Beverly Sparks [phone] D/C plan: 1-2 days Code status: Full Code(s): F79 - UNSPECIFIED INTELLECTUAL DISABILITIES
[2023-07-04] MEDS: ATARAX 25 MG PO SCH ×2 (11:14→21:19)
[2023-07-04] MEDS: CLARITIN 10 MG PO SCH (11:15)
[2023-07-04] MEDS: ECOTRIN 81 MG PO SCH (11:15)
[2023-07-04] MEDS: Abilify 10 MG PO SCH (11:15)
[2023-07-04] MEDS: Prozac 20 MG PO SCH (11:15)
[2023-07-04] MEDS: ENOXAPARIN SODIUM SQ SCH (11:15)
[2023-07-04] MEDS: VITAMIN D PO SCH (11:15)
[2023-07-04] MEDS: Protonix 40MG Tablet PO SCH (11:15)
[2023-07-04] MEDS: FIBERCON 625 MG PO SCH (11:16)
[2023-07-04] MEDS: Metamucil PACKET PO SCH (11:16)
[2023-07-04] MEDS: LIPITOR 40MG PO SCH (11:16)
[2023-07-04] MEDS ORDERED: NON-FORMULARY ITEM (Hydroxyzine Hcl [Hydroxyzine Hcl] 10 MG Tablet) PO SCH (12:00)
[2023-07-04 12:35] LABS: Appearance Clear (Clear); Bacteria None Seen /HPF (None Seen); Bilirubin Negative (Negative); Blood Negative (Negative); Epithelial Cells None Seen /HPF (None Seen); Glucose, Urine Negative (Negative); Hyaline Casts NONE SEEN /LPF (0-2); Ketones Negative (Negative); Leukocyte Esterase Negative (Negative); Nitrite Negative (Negative); Ph 5.5 (4.6-8.0); Protein,Urine Dip Negative (Negative); WBC 0-2 /HPF (0-5)
[2023-07-04 12:37] LABS: ADD URINE CULTURE? NO (NO)
--- NOTE | 2023-07-04 12:44 | XRAY ---
Indication: TIA. Two-dimensional sonogram and color Doppler imaging carotid arteries of the neck performed. Comparison: None Examination right carotid circulation demonstrates minimal punctate eccentric calcified plaquing distal common carotid artery. Remaining common carotid, carotid bulb, internal carotid, and external carotid arteries are widely patent. PSV CCA is 72 cm/s. PSV ICA is 77 cm/s. ICA/CCA ratio is 1.1. Normal antegrade vertebral artery flow. Examination left carotid circulation demonstrates minimal eccentric soft plaquing distal common carotid artery. Remaining common carotid, carotid bulb, internal carotid, and external carotid arteries are widely patent. PSV CCA is 112 cm/s. PSV ICA is 93 cm/s. ICA/CCA ratio is 0.8. Normal antegrade vertebral artery flow. Impression: Minimal arteriosclerotic disease in both distal common carotid arteries. Remaining carotid arteries of the neck widely patent. Velocity measurements and ratios negative for hemodynamically significant flow-limiting stenosis.
--- NOTE | 2023-07-04 13:56 | XRAY ---
Indication: Slurred speech. TIA. Sagittal, coronal, and axial MRI brain performed using pre and post T1, T2, FLAIR, diffusion, and ADC sequences. 15 cc Dotarem contrast used. Comparison: None Study slightly degraded by motion. Age-appropriate global atrophy. No acute intracranial hemorrhage, abnormal extra-axial fluid collection, or mass effect. Diffusion images negative for restricted signal. Following gadolinium, there is no abnormal enhancing intra or extra-axial mass. Fourth ventricle is midline without hydrocephalus. 7/8 cranial nerve complex bilaterally symmetric. Normal flow void signal within the major intracerebral circulation. Normal appearing craniocervical junction and sella turcica. Visualized paranasal sinuses are clear. Fluid signal seen in both mastoid air cells presumed inflammatory. Impression: 1. Motion artifact. 2. Grossly negative for acute intracranial abnormalities or evidence for evolving large vessel territorial stroke. 3. Negative contrast exam. 4. Incidental fluid signal in both mastoid air cells presumed inflammatory.
[2023-07-04] MEDS: PATIENT OWN MEDICATION PO SCH ×2 (15:16→15:17)
--- NOTE | 2023-07-04 15:32 | ECHO ---
Transthoracic echocardiographic examination and color Doppler was done on 07/04/2023. INDICATION: Transient ischemic attack/. IMPRESSION: NO DEFINITE REGIONAL WALL MOTION ABNORMALITY. ESTIMATED GLOBAL LEFT VENTRICULAR EJECTION FRACTION BETWEEN 50 TO 55%. The study is somewhat limited which precludes adequate assessment of intracardiac anatomy and physiology. The left ventricular ejection fraction estimated around 50 to 55%. Color flow study did not show any significant regurgitant lesions.
[2023-07-05 05:02] LABS: Hemoglobin 11.7 g/dL (12.5-18.0); Mean Cell Volume 88.8 fL (78-100); Mean Corpuscular Hemoglobin 30.5 pg (26-32); Mean Corpuscular Hgb Concent. 34.4 g/dL (32-36); Mean Platelet Volume 8.3 fL (7.5-11.0); Platelet Count 372 x10^3/uL (150-450); Red Blood Count 3.83 x10^6/uL (4.1-5.6); White Blood Count 12.9 x10^3/uL (4.0-10.5)
[2023-07-05 05:47] LABS: ANION GAP 8.9 MEQ/L (5-15); BILIRUBIN,TOTAL 0.8 mg/dL (0.2-1.3); Calcium 8.3 mg/dL (8.4-10.2); Creatinine 1 0.5 mg/dL (0.66-1.25); EST GLOMERULAR FILTRATION RATE 113.2 ML/MIN; Potassium 3.8 mmol/L (3.5-5.1); Total Protein 6.6 g/dL (6.3-8.2)
[2023-07-05 06:10] LABS: TSH, 3RD Generation 1.48 mIU/L (0.47-4.68)
[2023-07-05 07:34] VITALS: BP 138/65; PULSE 84
[2023-07-05] MEDS: Sodium Chloride 0.9% 1000 ML 1,000 ML IV SCH (08:52)
--- NOTE | 2023-07-05 10:55 | PCM.DS ---
Discharge Summary Date of Admission: 07/03/23 22:29 Date of Discharge: 07/05/23 Admitting Physician: MARTY LE MD Consults: Consults on Case 07/04/23 15:18 Consult Tele-Health [Tele-Health Consult] ROUTINE Primary Care Provider: KACI ARREDONDO JAMIE Allergies Allergies lorazepam [From Ativan] Allergy (Unknown, Verified 07/03/23 17:20) lexicam Allergy (Intermediate, Uncoded 07/03/23 17:20) [facility] Hospital Summary - Hospital Course Hospital Course: 07/04/23 Mr. EDGE is a 63 year old male with a past medical history significant for mental retardation who requires 24hr care, TIA, anxiety, and mood disorder. He was brought to the hospital after caregiver noticed increasing lethargy, confu harshad, unsteady gait, and slurred speech. No complaints of weakness, chest pain, shortness of breath, nausea, vomiting or diarrhea. No complaints of dysuria, hematuria or frequency. Initial labs were normal other than an elevated WBC of 12.8k. Patient with low grade fever at admission at 99.0, but has since come down to 98.6. He was seen by teleneurology and has been recommended for admission with MRI today. This is scheduled to be done at 1300. UA is currently pending. Reviewed teleneurology note and appropriate labs and testing ordered. CT of head was negative. PT/ OT/ ST to eval pt. Pt does not appear in any distress, is awake and alert today. Unknown baseline as there is no home staff or family members here today. 07/05/23 Pt resting in the chair. He is awake and alert at baseline mental status. Awaiting neurology eval post MRI scan that was completed yesterday. He has no slurred speech or weakness. If ok with neurology can d/c today. He denies any further concerns at this time. - Vitals & Intake/Output Vital Signs: Vital Signs Temperature 97.8 F 07/05/23 07:34 Pulse Rate 84 07/05/23 07:34 Respiratory Rate 16 07/05/23 07:34 Blood Pressure 138/65 07/05/23 07:34 O2 Sat by Pulse Oximetry 95 07/05/23 09:26 Intake & Output: Intake & Output 07/02/23 07/03/23 07/04/2324 11:59 11:59 11:59 11:59 Intake Total 2580 Output Total 1100 Balance 1480 Weight 92.9 kg - Lab Result Diagrams: 07/05/23 04:55 07/05/23 04:55 Lab Results-Last 24 Hrs: Lab Results-Last 24 Hours 07/04/23 07/05/23 07/05/23 Range/Units 12:25 04:50 04:55 WBC 12.9 H (4.0-10.5) x10^3/uL RBC 3.83 L (4.1-5.6) x10^6/uL Hgb 11.7 L (12.5-18.0) g/dL Hct 34.0 L (42-50) % MCV 88.8 (78-100) fL MCH 30.5 (26-32) pg MCHC 34.4 (32-36) g/dL RDW 12.0 (11.5-14.0) % Plt Count 372 (150-450) x10^3/uL MPV 8.3 (7.5-11.0) fL Sodium (135-145) mmol/L Potassium (3.5-5.1) mmol/L Chloride (98-107) mmol/L Carbon Dioxide (22-30) mmol/L Anion Gap (5-15) MEQ/L BUN (9-20) mg/dL Creatinine (0.66-1.25) mg/dL Estimated GFR ML/MIN Glucose (74-106) mg/dL Hemoglobin A1c 5.34 (4.5-6.0) % Calcium (8.4-10.2) mg/dL Total Bilirubin (0.2-1.3) mg/dL AST (17-59) U/L ALT (0-50) U/L Alkaline Phosphatase (38-126) U/L Serum Total Protein (6.3-8.2) g/dL Albumin (3.5-5.0) g/dL Triglycerides (30-150) mg/dL Cholesterol (50-200) mg/dL LDL Cholesterol (30-100) mg/dL HDL Cholesterol (40-60) mg/dL Heart Disease Risk Ratio TSH 3rd Generation (0.47-4.68) mIU/L Urine Color Dark Yellow (Yellow) Urine Appearance Clear (Clear) Urine pH 5.5 (4.6-8.0) Ur Specific [place] 1.020 (1.005-1.030) Urine Protein Negative (Negative) Urine Glucose (UA) Negative (Negative) mg/dL Urine Ketones Negative (Negative) Urine Blood Negative (Negative) Urine Nitrite Negative (Negative) Urine Bilirubin Negative (Negative) Urine Urobilinogen 1.0 A (0.2) mg/dL Ur Leukocyte Esterase Negative (Negative) U Hyaline Cast (Auto) NONE SEEN (0-2) /LPF Urine Microscopic RBC 3-5 (0-5) /HPF Urine Microscopic WBC 0-2 (0-5) /HPF Ur Epithelial Cells None Seen (None Seen) /HPF Urine Bacteria None Seen (None Seen) /HPF Urine Culture Reflexed NO (NO) 07/05/23 Range/Units 04:55 WBC (4.0-10.5) x10^3/uL RBC (4.1-5.6) x10^6/uL Hgb (12.5-18.0) g/dL Hct (42-50) % MCV (78-100) fL MCH (26-32) pg MCHC (32-36) g/dL RDW (11.5-14.0) % Plt Count (150-450) x10^3/uL MPV (7.5-11.0) fL Sodium 137 (135-145) mmol/L Potassium 3.8 (3.5-5.1) mmol/L Chloride 104 (98-107) mmol/L Carbon Dioxide 28 (22-30) mmol/L Anion Gap 8.9 (5-15) MEQ/L BUN 9 (9-20) mg/dL Creatinine 0.50 L (0.66-1.25) mg/dL Estimated GFR 113.2 ML/MIN Glucose 112 H (74-106) mg/dL Hemoglobin A1c (4.5-6.0) % Calcium 8.3 L (8.4-10.2) mg/dL Total Bilirubin 0.80 (0.2-1.3) mg/dL AST 24 (17-59) U/L ALT 23 (0-50) U/L Alkaline Phosphatase 114 (38-126) U/L Serum Total Protein 6.6 (6.3-8.2) g/dL Albumin 3.0 L (3.5-5.0) g/dL Triglycerides 42 (30-150) mg/dL Cholesterol 94 (50-200) mg/dL LDL Cholesterol 58 (30-100) mg/dL HDL Cholesterol 29 L (40-60) mg/dL Heart Disease Risk Ratio 3.0 TSH 3rd Generation 1.480 (0.47-4.68) mIU/L Urine Color (Yellow) Urine Appearance (Clear) Urine pH (4.6-8.0) Ur Specific [place] (1.005-1.030) Urine Protein (Negative) Urine Glucose (UA) (Negative) mg/dL Urine Ketones (Negative) Urine Blood (Negative) Urine Nitrite (Negative) Urine Bilirubin (Negative) Urine Urobilinogen (0.2) mg/dL Ur Leukocyte Esterase (Negative) U Hyaline Cast (Auto) (0-2) /LPF Urine Microscopic RBC (0-5) /HPF Urine Microscopic WBC (0-5) /HPF Ur Epithelial Cells (None Seen) /HPF Urine Bacteria (None Seen) /HPF Urine Culture Reflexed (NO) - Radiology Exams Ordered Rad Exams-Entire Visit: Radiology Procedures Category Date Time Status CAROTID BILATERAL [US] Routine Exams 07/04/23 09:28 Completed ECHO W/2D AND DOPPLER [US] Routine Exams 07/04/23 09:25 Draft HEAD WITHOUT CONTRAST [CT] Stat Exams 07/03/23 17:27 Completed MRI BRAIN W & W/O CONTRAST [MRI] Routine Exams 07/04/23 08:00 Completed - Procedures and Test Procedures and Tests throughout Hospitalization: Therapy Orders & Screens 07/03/23 23:55 PT Eval & Treat ( Order) ONCE Reason for Eval:: gait imbalance Diagnosis: TIA, slurred speech weakness OT Eval and Treat ( Order) ONCE Comment: Physician Instructions: Reason For Exam: Diagnosis: TIA, slurred speech weakness 07/04/23 07:51 Oxygen Nasal Cannula 2 lpm Comment: keep O2 > 92% Diagnosis: TIA, slurred speech weakness 07/04/23 09:29 ST Eval & Treat ( Order) .as ordered Comment: Physician Instructions: Reason For Exam: tia Evaluate: Yes Treat: Yes Reason for Eval: TIA Diagnosis: TIA, slurred speech weakness Discharge Exam General Appearance: no apparent distress, alert Neurologic Exam: alert, cooperative, normal mood/affect, nml cerebellar function, sensation nml, other (at baseline), No motor deficits Eye Exam: PERRL, EOMI, eyes nml inspection Ears, Nose, Throat Exam: normal ENT inspection, pharynx normal, moist mucous membranes Neck Exam: normal inspection, non-tender, supple, full range of motion Respiratory Exam: normal breath sounds, lungs clear, No respiratory distress Cardiovascular Exam: regular rate/rhythm, normal heart sounds Gastrointestinal/Abdomen Exam: soft, No tenderness, No mass Male Genitalia Exam: deferred Rectal Exam: deferred Back Exam: normal inspection, normal range of motion, No CVA tenderness, No vertebral tenderness Extremity Exam: normal inspection, normal range of motion Skin Exam: normal color, warm, dry Final Diagnosis/Problem List - Final Discharge Diagnosis/Problem (1) Leukocytosis Current Visit: Yes Status: Acute Code(s): D72.829 - ELEVATED WHITE BLOOD CELL COUNT, UNSPECIFIED (2) TIA (transient ischemic attack) Current Visit: Yes Status: Acute Code(s): G45.9 - TRANSIENT CEREBRAL ISCHEMIC ATTACK, UNSPECIFIED (3) Mental retardation Current Visit: No Status: Chronic Assessment & Plan: (1) Leukocytosis Current Visit: Yes Status: Acute Assessment & Plan: - UA negative - WBC improved 10.8 - no temp overnight 07/04 - WBC 12.9 - reactive? - No diarrhea, lungs CTA - will need OP f/u Code(s): D72.829 - ELEVATED WHITE BLOOD CELL COUNT, UNSPECIFIED (2) TIA (transient ischemic attack) Current Visit: Yes Status: Acute Assessment & Plan: - CT head 07/03/23 Impression: Nonacute senile brain. Again partial opacification both mastoid air cells presumed inflammatory. - MRI brain- negative for acute concern - Reviewed neurology note and agree with plan of care, recommended labs and radiology testing ordered. - PT, OT, ST- eval - atorvastatin 40mg daily started - 2LNC ordered as pt is 90% on RA- keep O2 > 92% 07/04 - RA 95% - If ok with neurology d/c today Code(s): G45.9 - TRANSIENT CEREBRAL ISCHEMIC ATTACK, UNSPECIFIED (3) Mental retardation Current Visit: No Status: Chronic Assessment & Plan: - Followed by caregiver - at baseline mental status Code(s): F79 - UNSPECIFIED INTELLECTUAL DISABILITIES - Discharge Discharge Date: 07/05/23 Disposition: Home, Self-Care Condition: Stable Prescriptions: Continue RX: Polyethylene Glycol 3350 17 gm [Miralax Powder 17GM PACKET] 17 gm PO DAILY PRN PRN PRN Reason: Constipation RX: Fluoxetine HCl 20 mg [Prozac 20 MG] 20 mg PO DAILY RX: Buspirone HCl [Buspar] 15 mg PO TID RX: Acetaminophen 325 mg [Tylenol 325 mg] 2 tab PO Q6H PRN PRN Reason: Pain And/Or Fever RX: Ketoconazole 1 applic TOP UD PRN PRN Reason: Redness/Irritation RX: Hydrocortisone 2.5% 30 gm [Anusol-Hc 2.5% Cream 30 gm] 1 applic TOP BIDPRN PRN PRN Reason: Itching RX: Aspirin 81 gm Chew [Baby Aspirin 81 mg Chew] 81 mg PO DAILY #0 RX: Calcium Polycarbophil [Fiber-Lax] 1 tab PO BID RX: hydrOXYzine HCL [Hydroxyzine HCl] 10 mg PO 0800,1200 RX: Cholecalciferol (Vitamin D3) [Vitamin D3] 2,000 unit PO DAILY RX: Psyllium Packet [Metamucil PACKET] 1 packet PO DAILY RX: Fexofenadine HCl [Zaida Allergy] 180 mg PO DAILY RX: Hydroxyzine HCl 25 mg [Atarax 25 mg] 50 mg PO HS RX: ARIPiprazole [Aripiprazole] 2 mg PO DAILY RX: Amantadine HCl [Amantadine] 100 mg PO TID Follow up with: KACI ARREDONDO MD [Primary Care Provider] - 07/09/23 2:15 pm
[2023-07-05 11:34] VITALS: RESP 20; TEMP 98.8; O2SAT 96
== END 2023-07-05 17:50 | disposition home or self-care (01) ==
LOC: ED 17:18 → MED SURG 22:29
PROVIDERS: ADMIT Internal Medicine Nephrology; ATTEND Internal Medicine Nephrology
DX: D72.829 Elevated white blood cell count, unspecified (principal); G45.9 Transient cerebral ischemic attack, unspecified; F79 Unspecified intellectual disabilities; Z79.899 Other long term (current) drug therapy; Z59.811 Housing instability, housed, with risk of homelessness
CPT/HCPCS: 36000; 36415; 70450; 70553; 80048; 80053; 80061; 81001; 83036; 83721; 84443; 84484; 85025; 85027; 92522; 93005; 93041; 93268; 93306; 93880; 94760; 97161; 97165; 99284; G0378; Q3014; J1650; A9270-GY

== ENCOUNTER 2023-07-13 21:22 | Emergency (ER) | payer MEDICARE ==
[2023-07-13 21:25] VITALS: TEMP 97.2
--- NOTE | 2023-07-13 21:27 | ERPHSYRPT ---
- History of Present Illness Time Seen by Provider: 07/13/23 21:26 Historian: patient, family Exam Limitations: no limitations Physician History: This is a 63-year-old white male patient who was brought to the emergency department by his treasury associate secondary to his complaint of chest pain. The treasury associate is unsure if he was asked if he had chest pain or if he unsolicited remarked that he was having nonradiating chest pain that is central in location. The patient has a significant degree of mental retardation. He is not the best historian. I did review the patient's recent admission and discharge from [facility] for what appeared to be a TIA. Patient underwent a significant cardiac workup at that time as well. Prior to today, he had 3 different normal troponin levels and 3 different nonemergent twelve-lead EKGs. Upon arrival to the emergency department, he denies having chest pain. He denies having shortness of breath. He does respond positively when asked if he is tired and fatigued. Timing/Duration: today Quality: aching Location: substernal, central Chest Pain Radiation: no radiation Severity of Pain-Max: mild Severity of Pain-Current: none Associated Symptoms: fatigue, No abdominal pain, No shortness of breath, No cough, No headache Prior Chest Pain/Cardiac Workup: recently seen/treated Nitro Today/Relief: no nitro taken today Aspirin Treatment Today: no aspirin today Allergies/Adverse Reactions: lorazepam [From Ativan] Allergy (Unknown, Verified 07/13/23 21:40) lexicam Allergy (Intermediate, Uncoded 07/03/23 17:20) itchy Home Medications: Buspirone HCl [Buspar] 15 mg PO TID 10/23/20 [History] Fluoxetine HCl 20 mg [Prozac 20 MG] 20 mg PO DAILY 10/23/20 [History] Polyethylene Glycol 3350 17 gm [Miralax Powder 17GM PACKET] 17 gm PO DAILY PRN PRN 10/23/20 [History] Acetaminophen 325 mg [Tylenol 325 mg] 2 tab PO Q6H PRN 08/12/21 [History] Hydrocortisone 2.5% 30 gm [Anusol-Hc 2.5% Cream 30 gm] 1 applic TOP BIDPRN PRN 08/12/21 [History] ARIPiprazole [Aripiprazole] 2 mg PO DAILY 07/03/23 [History] Amantadine HCl [Amantadine] 100 mg PO TID 07/03/23 [History] Calcium Polycarbophil [Fiber-Lax] 1 tab PO BID 07/03/23 [History] Cholecalciferol (Vitamin D3) [Vitamin D3] 2,000 unit PO DAILY 07/03/23 [History] Fexofenadine HCl [Zaida Allergy] 180 mg PO DAILY 07/03/23 [History] Psyllium Packet [Metamucil PACKET] 1 packet PO DAILY 07/03/23 [History] Hx Tetanus, Diphtheria Vaccination/Date Given: No Hx Influenza Vaccination/Date Given: Yes Hx Pneumococcal Vaccination/Date Given: Yes Travel Risk - Emerging Infectious Disease Are you exhibiting symptoms associated with any current EIDs: No - Review of Systems Constitutional: Fatigue Eyes: No Symptoms Ears, Nose, & Throat: No Symptoms Respiratory: No Symptoms Cardiac: Chest Pain (None now. However when asked earlier at the longterm, he stated he did have chest pain) Abdominal/Gastrointestinal: No Symptoms Genitourinary Symptoms: No Symptoms Musculoskeletal: No Symptoms Skin: No Symptoms Neurological: No Symptoms Psychological: No Symptoms Endocrine: No Symptoms Hematologic/Lymphatic: No Symptoms Immunological/Allergic: No Symptoms All Other Systems: Reviewed and Negative - Past Medical History Pertinent Past Medical History: Yes Neurological History: TIA ENT History: Other Cardiac History: No Pertinent History Respiratory History: No Pertinent History Endocrine Medical History: No Pertinent History Musculoskeletal History: No Pertinent History GI Medical History: No Pertinent History History: No Pertinent History Psycho-Social History: Anxiety, Other Male Reproductive Disorders: No Pertinent History Other Medical History: Mental Retardation from , mood disorder - Past Surgical History Past Surgical History: Yes Neuro Surgical History: No Pertinent History Cardiac: No Pertinent History Respiratory: No Pertinent History Gastrointestinal: Appendectomy Genitourinary: No Pertinent History Musculoskeletal: No Pertinent History Male Surgical History: No Pertinent History - Social History Smoking Status: Never smoker Exposure to second hand smoke: No Drug Use: none Patient Lives Alone: No - Nursing Vital Signs Nursing Vital Signs: Initial Vital Signs Temperature 97.2 F 07/13/23 21:24 Pulse Rate 75 07/13/23 21:24 Respiratory Rate 18 07/13/23 21:24 Blood Pressure 121/63 07/13/23 21:24 O2 Sat by Pulse Oximetry 96 07/13/23 21:24 Pain Scale Pain Intensity 0 - Physical Exam General Appearance: no apparent distress, alert, anxiety Eye Exam: PERRL/EOMI, eyes nml inspection Ears, Nose, Throat Exam: normal ENT inspection, moist mucous membranes Neck Exam: normal inspection, non-tender, supple, full range of motion Respiratory Exam: normal breath sounds, lungs clear, airway intact, No chest tenderness, No respiratory distress Cardiovascular Exam: regular rate/rhythm, normal heart sounds, normal peripheral pulses Gastrointestinal/Abdomen Exam: soft, normal bowel sounds, No tenderness Rectal Exam: not done Back Exam: normal inspection, normal range of motion, No CVA tenderness, No vertebral tenderness Extremity Exam: normal inspection, normal range of motion, pelvis stable Neurologic Exam: alert, cooperative, kst operator II-XII nml as tested, normal mood/affect, nml cerebellar function, nml station & gait, sensation nml Skin Exam: normal color, warm, dry Lymphatic Exam: No adenopathy SpO2 Interpretation: normal SpO2: 96 O2 Delivery: Room Air - Course Nursing assessment & vital signs reviewed: Yes EKG Interpreted by Me: RATE (75), Sinus Rhythm, NORMAL AXIS, NORMAL INTERVALS, NORMAL QRS, NORMAL ST-T, Other (No acute ischemic changes on today's twelve-lead EKG.) Ordered Tests: Active Orders 24 hr Category Date Time Status EKG-ER Only STAT Care 07/13/23 21:48 Active IV Insertion STAT Care 07/13/23 21:48 Active Pulse Oximetry (ED) STAT Care 07/13/23 21:48 Active CHEST WITH CONTRAST [CT] Stat Exams 07/13/23 22:38 Completed CBC W DIFF Stat Lab 07/13/23 21:48 Completed CMP Stat Lab 07/13/23 21:48 Completed D-DIMER QUANTITATIVE Stat Lab 07/13/23 21:48 Completed MAGNESIUM Stat Lab 07/13/23 21:48 Completed NT PRO BNPII Stat Lab 07/13/23 21:48 Completed TROPONIN Q4H Lab 07/13/23 22:00 Completed TROPONIN Q4H Lab 07/14/23 02:00 Ordered TROPONIN Q4H Lab 07/14/23 06:00 Ordered UA W/RFX UR CULTURE Stat Lab 07/13/23 23:41 Completed Medication Summary Discontinued Medications Generic Name Dose Route Start Last Admin Trade Name Antonella PRN Reason Stop Dose Admin Methylprednisolone Sodium 0 mg 07/14/23 00:56 07/14/23 01:03 Succinate 125 mg/ Sterile IV 07/14/23 00:57 125 mg Water 2 ml STAT ONE Administration Sodium Chloride 500 mls @ 500 mls/hr 07/13/23 22:37 07/14/23 00:16 Sodium Chloride 0.9% 500 Ml IV 07/13/23 23:36 Infused .Q1H ONE Infusion Sodium Chloride Confirm 07/13/23 22:44 Sodium Chloride 0.9% 500 Ml Administered 07/13/23 22:45 Dose 500 mls @ ud IV .STK-MED ONE Ceftriaxone Sodium 1 gm in 100 mls @ 200 mls/hr 07/14/23 00:56 07/14/23 01:52 Rocephin 1 Gm / 100 Ml Nacl IV 07/14/23 01:25 Infused STAT ONE Infusion Ceftriaxone Sodium Confirm 07/14/23 00:59 Rocephin 1 Gm / 100 Ml Nacl Administered 07/14/23 01:00 Dose 1 gm in 100 mls @ ud IV .STK-MED ONE Methylprednisolone Sodium Succinate Confirm 07/14/23 00:59 Methylprednis Sod Succ 125 Mg/2 Ml Vial Administered 07/14/23 01:00 Dose 125 mg .ROUTE .STK-MED ONE Sterile Water Confirm 07/14/23 00:59 Water For Injection,Sterile 10 Ml Vial Administered 07/14/23 01:00 Dose 10 ml IJ .STK-MED ONE Lab/Rad Data: Laboratory Result Diagrams 07/13/23 21:48 07/13/23 21:48 Laboratory Results 07/14/23 07/13/23 07/13/23 Range/Units 01:04 23:41 22:00 WBC (4.0-10.5) x10^3/uL RBC (4.1-5.6) x10^6/uL Hgb (12.5-18.0) g/dL Hct (42-50) % MCV (78-100) fL MCH (26-32) pg MCHC (32-36) g/dL RDW (11.5-14.0) % Plt Count (150-450) x10^3/uL MPV (7.5-11.0) fL Gran % (36.0-66.0) % Immature Gran % (Auto) (0.00-0.4) % Nucleat RBC Rel Count (0.00-0.1) % Eos # (Auto) (0-0.5) x10^3/uL Immature Gran # (Auto) (0.00-0.03) x10^3u/L Absolute Lymphs (auto) (1.0-4.6) x10^3/uL Absolute Monos (auto) (0.0-1.3) x10^3/uL Absolute Nucleated RBC (0.00-0.01) x10^3u/L Lymphocytes % (24.0-44.0) % Monocytes % (0.0-12.0) % Eosinophils % (0.00-5.0) % Basophils % (0.0-0.4) % Absolute Granulocytes (1.4-6.9) x10^3/uL Basophils # (0-0.4) x10^3/uL D-Dimer (0.0-0.50) mg/L Sodium (135-145) mmol/L Potassium (3.5-5.1) mmol/L Chloride (98-107) mmol/L Carbon Dioxide (22-30) mmol/L Anion Gap (5-15) MEQ/L BUN (9-20) mg/dL Creatinine (0.66-1.25) mg/dL Estimated GFR ML/MIN Glucose (74-106) mg/dL Calcium (8.4-10.2) mg/dL Magnesium (1.6-2.3) mg/dL Total Bilirubin (0.2-1.3) mg/dL AST (17-59) U/L ALT (0-50) U/L Alkaline Phosphatase (38-126) U/L Troponin I < 0.012 (0.000-0.033) ng/mL NT-Pro-B Natriuret Pep (<300) pg/mL Serum Total Protein (6.3-8.2) g/dL Albumin (3.5-5.0) g/dL Urine Color Yellow (Yellow) Urine Appearance Clear (Clear) Urine pH 6.5 (4.6-8.0) Ur Specific [place] 1.025 (1.005-1.030) Urine Protein Negative (Negative) Urine Glucose (UA) Negative (Negative) mg/dL Urine Ketones Negative (Negative) Urine Blood Negative (Negative) Urine Nitrite Negative (Negative) Urine Bilirubin Negative (Negative) Urine Urobilinogen 4.0 A (0.2) mg/dL Ur Leukocyte Esterase Negative (Negative) U Hyaline Cast (Auto) NONE SEEN (0-2) /LPF Urine Microscopic RBC 0-2 (0-5) /HPF Urine Microscopic WBC 0-2 (0-5) /HPF Ur Epithelial Cells None Seen (None Seen) /HPF Urine Bacteria None Seen (None Seen) /HPF Urine Culture Reflexed NO (NO) Influenza Type A Ag NEGATIVE (NEGATIVE) Influenza Type B Ag NEGATIVE (NEGATIVE) RSV (PCR) NEGATIVE (NEGATIVE) SARS-CoV-2 (PCR) NEGATIVE (NEGATIVE) 07/13/23 07/13/23 07/13/23 Range/Units 21:48 21:48 21:48 WBC 10.4 (4.0-10.5) x10^3/uL RBC 4.01 L (4.1-5.6) x10^6/uL Hgb 11.8 L (12.5-18.0) g/dL Hct 35.8 L (42-50) % MCV 89.3 (78-100) fL MCH 29.4 (26-32) pg MCHC 33.0 (32-36) g/dL RDW 11.9 (11.5-14.0) % Plt Count 477 H (150-450) x10^3/uL MPV 8.5 (7.5-11.0) fL Gran % 74.7 H (36.0-66.0) % Immature Gran % (Auto) 0.5 H (0.00-0.4) % Nucleat RBC Rel Count 0.0 (0.00-0.1) % Eos # (Auto) 0.49 (0-0.5) x10^3/uL Immature Gran # (Auto) 0.05 H (0.00-0.03) x10^3u/L Absolute Lymphs (auto) 1.24 (1.0-4.6) x10^3/uL Absolute Monos (auto) 0.77 (0.0-1.3) x10^3/uL Absolute Nucleated RBC 0.00 (0.00-0.01) x10^3u/L Lymphocytes % 12.0 L (24.0-44.0) % Monocytes % 7.4 (0.0-12.0) % Eosinophils % 4.7 (0.00-5.0) % Basophils % 0.7 (0.0-0.4) % Absolute Granulocytes 7.75 H (1.4-6.9) x10^3/uL Basophils # 0.07 (0-0.4) x10^3/uL D-Dimer 6.71 H* (0.0-0.50) mg/L Sodium 138 (135-145) mmol/L Potassium 3.9 (3.5-5.1) mmol/L Chloride 102 (98-107) mmol/L Carbon Dioxide 29 (22-30) mmol/L Anion Gap 10.2 (5-15) MEQ/L BUN 9 (9-20) mg/dL Creatinine 0.57 L (0.66-1.25) mg/dL Estimated GFR 108.8 ML/MIN Glucose 117 H (74-106) mg/dL Calcium 8.6 (8.4-10.2) mg/dL Magnesium 2.1 (1.6-2.3) mg/dL Total Bilirubin 0.60 (0.2-1.3) mg/dL AST 39 (17-59) U/L ALT 39 (0-50) U/L Alkaline Phosphatase 134 H (38-126) U/L Troponin I (0.000-0.033) ng/mL NT-Pro-B Natriuret Pep 118 (<300) pg/mL Serum Total Protein 7.1 (6.3-8.2) g/dL Albumin 3.0 L (3.5-5.0) g/dL Urine Color (Yellow) Urine Appearance (Clear) Urine pH (4.6-8.0) Ur Specific [place] (1.005-1.030) Urine Protein (Negative) Urine Glucose (UA) (Negative) mg/dL Urine Ketones (Negative) Urine Blood (Negative) Urine Nitrite (Negative) Urine Bilirubin (Negative) Urine Urobilinogen (0.2) mg/dL Ur Leukocyte Esterase (Negative) U Hyaline Cast (Auto) (0-2) /LPF Urine Microscopic RBC (0-5) /HPF Urine Microscopic WBC (0-5) /HPF Ur Epithelial Cells (None Seen) /HPF Urine Bacteria (None Seen) /HPF Urine Culture Reflexed (NO) Influenza Type A Ag (NEGATIVE) Influenza Type B Ag (NEGATIVE) RSV (PCR) (NEGATIVE) SARS-CoV-2 (PCR) (NEGATIVE) - Progress Progress: improved, re-examined Air Movement: good Progress Note: 07/13/23 22:48 My medical decision making and the assignment of moderate complexity to this patient's medical issue is based on review of the patient's past medical history, review the patient's medication list, review of patient drug allergy list, history present illness and physical findings on examination. The workup in this patient include twelve-lead EKG, CBC, CMP, troponin level, D-dimer level, BNP level, magnesium level. Differential diagnosis includes myocardial infarction, congestive heart failure, pulmonary embolus, pneumonia, anxiety 07/14/23 00:57 I interpreted the laboratory data results. The D-dimer was significantly elevated and therefore I ordered a CT of the chest with contrast to evaluate for at least a pulmonary embolism. CT scan of the chest with contrast was interpreted by the radiologist and I reviewed the impression. Impression states no evidence for pulmonary embolism. There is bilateral symmetric groundglass opacities. There is also mediastinal lymphadenopathies. Somewhat consistent with COVID-19 infection. Blood Culture(s) Obtained: No Antibiotics given: Yes Counseled pt/family regarding: lab results, diagnosis, rad results Medical Desision Making - Independent Historian Additional History obtained from: Channel Lip Stiffener Insoles - Diagnostic Testing Diagnostic test were ordered, analyzed, and reviewed by me: Yes Radiological Interpretation: Reviewed by me, Teleradiologist Report - Risk of complications The pt has a mod risk of morbidity or mortality based on: Need for prescription drug management - Departure Departure Disposition: Home Clinical Impression: Nonspecific chest pain, Opacities of both lungs present on chest x-ray Condition: Stable Critical Care Time: No Referrals: KCAI ARREDONDO MD [Primary Care Provider] - Follow up/PCP as directed Additional Instructions: Drink plenty of fluids. Take antibiotics as prescribed. Follow-up with your primary care provider next week to make arranges for follow-up appointment for further evaluation management. Prescriptions: Azithromycin 250 mg [Zithromax 250 MG TABLET] 250 mg PO ZPACK #6 tablet
[2023-07-13 22:08] LABS: Absolute Neutrophil Ct (ANC) 7.75 x10^3/uL (1.4-6.9); BASOPHIL % 0.7 % (0.0-0.4); Basophil (Absolute #) 0.07 x10^3/uL (0-0.4); Eosinophil % 4.7 % (0.00-5.0); Eosinophil (Absolute #) 0.49 x10^3/uL (0-0.5); Hematocrit 35.8 % (42-50); Hemoglobin 11.8 g/dL (12.5-18.0); IMMATURE GRAN # 0.05 x10^3u/L (0.00-0.03); IMMATURE GRAN % 0.5 % (0.00-0.4); Lymphocyte (Absolute #) 1.24 x10^3/uL (1.0-4.6); Mean Cell Volume 89.3 fL (78-100); Mean Corpuscular Hemoglobin 29.4 pg (26-32); Mean Platelet Volume 8.5 fL (7.5-11.0); Monocyte (Absolute #) 0.77 x10^3/uL (0.0-1.3); Monocytes % 7.4 % (0.0-12.0); Neutrophil % 74.7 % (36.0-66.0); Platelet Count 477 x10^3/uL (150-450); Red Blood Count 4.01 x10^6/uL (4.1-5.6); Red Cell Distribution Width 11.9 % (11.5-14.0); White Blood Count 10.4 x10^3/uL (4.0-10.5)
[2023-07-13 22:37] LABS: ANION GAP 10.2 MEQ/L (5-15); BILIRUBIN,TOTAL 0.6 mg/dL (0.2-1.3); Calcium 8.6 mg/dL (8.4-10.2); Creatinine 1 0.57 mg/dL (0.66-1.25); EST GLOMERULAR FILTRATION RATE 108.8 ML/MIN; MAGNESIUM 2.1 mg/dL (1.6-2.3); Potassium 3.9 mmol/L (3.5-5.1); Total Protein 7.1 g/dL (6.3-8.2)
[2023-07-13] MEDS ORDERED: Sodium Chloride 0.9% 500 ML 500 ML IV ONE (22:44)
[2023-07-13] MEDS: Sodium Chloride 0.9% 500 ML 500 ML IV ONE (22:44)
[2023-07-14 00:14] LABS: ADD URINE CULTURE? NO (NO); Appearance Clear (Clear); Bacteria None Seen /HPF (None Seen); Bilirubin Negative (Negative); Blood Negative (Negative); Epithelial Cells None Seen /HPF (None Seen); Glucose, Urine Negative (Negative); Hyaline Casts NONE SEEN /LPF (0-2); Ketones Negative (Negative); Leukocyte Esterase Negative (Negative); Nitrite Negative (Negative); Ph 6.5 (4.6-8.0); Protein,Urine Dip Negative (Negative); RBC 0-2 /HPF (0-5); Specific Gravity 1.025 (1.005-1.030); WBC 0-2 /HPF (0-5)
--- NOTE | 2023-07-14 00:41 | XRAY ---
CLINICAL HISTORY: Chest pain; D-dimer elevated COMPARISON: None. TECHNIQUE: CT Angiography of the chest with 100 cc Isovue 370 IV contrast. Coronal and sagittal reconstructions were obtained. One of the following dose reduction techniques was utilized for this exam: Automated exposure control, adjustment of the mA and/or kV according to patient size, and use of iterative reconstruction. CTDI: 57.64 mGy. DLP: 945 mGy*cm. One of these 3D techniques was utilized: Maximum Intensity Pixel (MIP), 3D Reconstructed Images, Volume Rendered Images, Surface Shaded Rendering. FINDINGS: Normal main pulmonary artery and the left and right main pulmonary trunks. No detected pulmonary embolism. The main pulmonary trunk preserves a normal diameter, measuring up to 24.8 mm. The lobar and segmental arteries show no evidence of pulmonary embolism. Limited evaluation of subsegmental arteries. Heart size is normal, and there is no pericardial effusion. The scanned pulmonary parenchyma shows bilateral symmetrical areas of ground glass opacities and consolidation associated with mild interlobular septa thickening. No free or encysted pleural effusion. Calcified granulomas in both lower lungs, measuring up to 0.6 cm. Multiple enlarged mediastinal lymph nodes were noted, measuring up to 1 cm, located in bilateral paratracheal, paraaortic, prevascular, subcarinal, and bilateral hilar levels. Some calcified lymph nodes were also identified. Normal ascending aorta, descending aorta, and aortic arch. In the scanned neck and abdomen no significant abnormality was identified. Degenerative changes of the dorsal spine. IMPRESSION: 1. No evidence of pulmonary embolism in the evaluated arteries. 2. Findings are consistent with pneumonia by an atypical pathogen. Correlate clinically. COVID-19 infection should be ruled out. 3. Mediastinal lymphadenopathies. [facility] ER was called at [phone] at 11:33 PM DONOR PROCESSOR, 07/13/2023 and significant medical findings were verbally communicated to Neel Whittaker. Electronically Signed by: Linh Hoffmann MD. (07/14/2023 00:37:32 EDT)
[2023-07-14] MEDS ORDERED: solu-MEDROL ONE (00:59)
[2023-07-14] MEDS ORDERED: ROCEPHIN 1 GM / 100 ML NaCl 1 GM/100 ML IVPB IV ONE (00:59)
[2023-07-14] MEDS ORDERED: Sterile H2O 10 ml IJ ONE (00:59)
[2023-07-14 01:00] VITALS: O2SAT 96
[2023-07-14] MEDS: solu-MEDROL 125 MG, Sterile H2O 10 ml 2 ML IV ONE (01:03)
[2023-07-14] MEDS: ROCEPHIN 1 GM / 100 ML NaCl 1 GM/100 ML IVPB IV ONE (01:03)
[2023-07-14 01:42] LABS: INFLUENZA A NEGATIVE (NEGATIVE); INFLUENZA B NEGATIVE (NEGATIVE); RESPIRATORY SYNCTIAL VIRUS NEGATIVE (NEGATIVE); SARS-CoV-2 Xpert Express NEGATIVE (NEGATIVE)
[2023-07-14 02:04] VITALS: BP 105/67; PULSE 57; RESP 17
== END 2023-07-14 02:17 | disposition home or self-care (01) ==
LOC: ED 21:22
DX: R07.9 Chest pain, unspecified (principal); R91.8 Other nonspecific abnormal finding of lung field; Z79.899 Other long term (current) drug therapy; Z20.828 Contact with and (suspected) exposure to other viral communicable diseases
CPT/HCPCS: 0241U; 36000; 36415; 71260; 80053; 81001; 83735; 83880; 84484; 85025; 85379; 93005; 94760; 96365; 96374; 99284; J0696; J2919

== ENCOUNTER 2024-03-24 10:42 | Day surgery (SDC) | payer MEDICARE ==
--- NOTE | 2024-03-24 09:12 | HP ---
HISTORY OF PRESENT ILLNESS: A 64-year-old upper esophagus dysphagia, worse with solids, on mechanical soft diet. No prior upper endoscopy in the past. Needs upper endoscopy for evaluation, possible dilatation, possible biopsy. PAST MEDICAL HISTORY: Bipolar, depression, developmentally handicapped as well. HOME MEDICATIONS: MiraLAX, amantadine, buspirone, aspirin, fexofenadine, Abilify, and fluoxetine. ALLERGIES: Lorazepam. PAST SURGICAL HISTORY: Appendectomy, cataract surgery. SOCIAL HISTORY: No smoking or alcohol abuse. FAMILY HISTORY: Unknown. REVIEW OF SYSTEMS: Twelve systems reviewed. No chest pain or palpitations. Other systems negative or noncontributory as above and per preadmission assessment is developmentally delayed. PHYSICAL EXAMINATION: GENERAL: Height 6 feet. BMI 25.23. No acute distress. HEENT: Sclerae nonicteric. Extraocular movements intact. NECK: No JVD. CARDIOVASCULAR: Regular rate and rhythm. RESPIRATORY: Clear. Equal excursion, nonlabored breathing. ABDOMEN: Soft. SKIN: Dry. EXTREMITIES: No cyanosis or edema. NEUROLOGIC: Alert and oriented. Moving extremities symmetrically. PSYCHIATRIC: Appropriate mood and affect. IMPRESSION: Dysphagia upper esophagus. Needs EGD, possible dilatation. Risks and benefits explained in detail to include bleeding, infection, risk of bowel injury or perforation possibly requiring open procedure or transfer for stent placement; possibility of no improvement in swallowing possibly requiring other procedures, dilators, or referrals; risks of possible wound in the area of the dilator; possible neurologic or functional problem and dilatation may not benefit; dilatation performed to improve swallowing might need to be repeated again down the road; all of the above but not limited to. Patient agrees to proceed. Otherwise, continue medications for depression, bipolar as an outpatient. We will proceed with EGD, possible biopsy, possible dilatation as an outpatient.
[2024-03-24 11:11] VITALS: O2SAT 98
[2024-03-24] MEDS ORDERED: propofoL IV ONE ×2 (11:43→12:08)
[2024-03-24 12:49] VITALS: TEMP 96.6
[2024-03-24 13:01] VITALS: BP 117/77; PULSE 66; RESP 18
--- NOTE | 2024-03-25 11:10 | OP ---
SURGERY DATE/TIME: 03/24/2024 [id number] PREOPERATIVE DIAGNOSIS: Dysphagia. POSTOPERATIVE DIAGNOSES: 1) Mild gastritis. 2) Proximal esophageal narrowing spasm. PROCEDURE: 1) Esophagogastroduodenoscopy. 2) Cold biopsy of the antrum to evaluate for H. pylori 3) Cold biopsy of mild erythema distal esophagus to evaluate for early inflammation. 4) Proximal esophageal dilatation (size 20 balloon). SURGEON: Hay Lomax MD ANESTHESIA: MAC. ESTIMATED BLOOD LOSS: Minimal. INDICATIONS: Consent obtained. DESCRIPTION OF PROCEDURE AND FINDINGS: Patient was taken to the endoscopy room. MAC anesthesia induced. After official time-out, no disagreement in planned procedure. Bite block positioned. Video gastroscope passed down the oropharynx. Proximal esophagus was somewhat narrowed and had some spasm. Scope was able to be passed through there. There was no obvious mass to biopsy or lesion to biopsy but it was felt he would benefit from dilatation given his symptoms in that area. Scope was passed down through the patent pylorus to the junction of the second and third portions of the duodenum. Duodenum was grossly unremarkable. Scope pulled back in the stomach. He did have some gastric erythema and mild gastritis. Cold biopsy was taken. Good hemostasis was noted. Biopsied antrum for H. pylori. On retroflex, GE junction snug against the scope. No sign of any hiatal hernia visible endoscopically. Scope pulled back. GE junction about 39 to 40 cm. Slight erythema in distal esophagus. Cold biopsy taken to evaluate for some early inflammation. There was no sign of any Thomas's. No sign of any erosions or masses in this area. Scope pulled back to proximal esophagus. Again, proximal esophageal narrowing. No signs of any obvious masses or lesions to biopsy. It was felt he would benefit from dilatation. Scope passed back down to the stomach. A 20 balloon catheter carefully passed down the scope, pulled back up to the proximal esophageal narrowing area where it was carefully inflated, first stage for 30 seconds, second stage for 30 seconds, and final stage for approximately 2 minutes. Size 20 balloon dilator. The balloon catheter was then released, withdrawn. The scope much more easily passed through this area back down into the stomach and was carefully withdrawn. There were no signs of any full-thickness issues secondary to dilatation. The patient tolerated the procedure well. There were no immediate complications. We will see if he has any family out in the waiting area to discuss findings with. Room temperature liquids for 4 hours then advance diet as tolerated. We will see him back in the office next week.
== END 2024-03-24 13:15 | disposition home or self-care (01) ==
LOC: SDC 10:42
PROVIDERS: ATTEND Surgery
DX: K29.70 Gastritis, unspecified, without bleeding (principal); R13.10 Dysphagia, unspecified; K22.2 Esophageal obstruction
CPT/HCPCS: 93005; C1726; J2704